=== PATIENT | male | born 1970 | race Caucasian/White ===

== ENCOUNTER 2018-09-24 16:40 | Emergency (ER) | payer SELFPAY ==
[2018-09-24 18:31] LABS: ABS Basophils 0.1 10^3/ul (0-0.2); ABS Eosinophils 0.6 10^3/ul (0-0.6); ABS Lymphocytes 2.2 10^3/ul (1.0-4.8); ABS Monocytes 0.9 10^3/ul (0-0.8); ABS Neutrophils 6.8 10^3/ul (1.5-7.7); ABS Nucleated RBC 0 10^3/ul; Eosinophil % 5.3 %; Hematocrit 40 % (42-52); Hemoglobin 13.5 g/dl (14.0-18.0); Lymphocyte % 21.1 %; Mean Corpuscular HGB Conc 34 g/dl (31-36); Mean Corpuscular Hemoglobin 29 pg (27-31); Mean Corpuscular Volume 86 fL (80-94); Mean Platelet Volume 8.3 fL (7.4-10.4); Nucleated Red Blood Cells % 0; Platelet Count 265 10^3/ul (150-450); Red Blood Count 4.69 10^6/ul (4.00-5.40); Red Cell Distribution Width 13 % (10.5-15); White Blood Count 10.6 10^3/ul (3.5-10.8)
[2018-09-24 18:54] LABS: EGFR Non-African American 39.1 (>60)
--- NOTE | 2018-09-24 19:03 | ED ---
HPI Chest Pain - HPI Summary HPI Summary: 48 year old male presents with right sided rib pain for the past couple days. He dropped a tailgate on his right ribs. He admits to pain with deep inspiration. He denies any bowel pain. No nausea or vomiting. He states he has been also been having a cough. No fevers. He is a smoker. He denies any pain or swelling in his calf muscle. No family history of blood clots. No recent travel. - History of Current Complaint Chief Complaint: EDChestWallPain Time Seen by Provider: 09/24/18 17:37 Pain Intensity: 15 - Allergy/Home Medications Allergies/Adverse Reactions: Allergies Allergy/AdvReac Type Severity Reaction Status Date / Time No Known Allergies Allergy Verified 09/24/18 16:47 PMH/Surg Hx/FS Hx/Imm Hx Endocrine/Hematology History: Denies: Hx Anticoagulant Therapy Respiratory History: Denies: Hx Asthma Infectious Disease History: No Infectious Disease History: Denies: Traveled Outside the [place] in Last 30 Days - Family History Known Family History: Positive: Non-Contributory - Social History Substance Use Type: Reports: None Smoking Status (MU): Current Every Day Smoker Review of Systems Negative: Fever Positive: Chest Pain Positive: Shortness Of Breath, Cough Negative: Abdominal Pain All Other Systems Reviewed And Are Negative: Yes Physical Exam Triage Information Reviewed: Yes Vital Signs On Initial Exam: Initial Vitals Temp Pulse Resp BP Pulse Ox 97.5 F 80 16 169/80 99 09/24/18 16:41 09/24/18 16:41 09/24/18 16:41 09/24/18 16:41 09/24/18 16:41 Vital Signs Reviewed: Yes Appearance: Positive: Well-Appearing Skin: Positive: Warm, Dry Head/Face: Positive: Normal Head/Face Inspection Eyes: Positive: Normal, EOMI, SHAY, Conjunctiva Clear ENT: Positive: Normal ENT inspection, Pharynx normal, TMs normal Respiratory/Lung Sounds: Positive: Clear to Auscultation, Breath Sounds Present , Other - tenderness over right lower ribs Cardiovascular: Positive: Normal, RRR Musculoskeletal: Positive: Normal Neurological: Positive: Normal Psychiatric: Positive: Normal Diagnostics - Vital Signs Vital Signs Temp Pulse Resp BP Pulse Ox 09/24/18 16:41 97.5 F 80 16 169/80 99 - Laboratory Lab Results: Lab Results 09/24/18 09/24/18 Range/Units 18:20 18:22 WBC 10.6 (3.5-10.8) 10^3/ul RBC 4.69 (4.00-5.40) 10^6/ul Hgb 13.5 L (14.0-18.0) g/dl Hct 40 L (42-52) % MCV 86 (80-94) fL MCH 29 (27-31) pg MCHC 34 (31-36) g/dl RDW 13 (10.5-15) % Plt Count 265 (150-450) 10^3/ul MPV 8.3 (7.4-10.4) fL Neut % (Auto) 64.3 % Lymph % (Auto) 21.1 % [place] % (Auto) 8.4 % Eos % (Auto) 5.3 % Baso % (Auto) 0.9 % Absolute Neuts (auto) 6.8 (1.5-7.7) 10^3/ul Absolute Lymphs (auto) 2.2 (1.0-4.8) 10^3/ul Absolute Monos (auto) 0.9 H (0-0.8) 10^3/ul Absolute Eos (auto) 0.6 (0-0.6) 10^3/ul Absolute Basos (auto) 0.1 (0-0.2) 10^3/ul Absolute Nucleated RBC 0 10^3/ul Nucleated RBC % 0 Sodium 137 (135-145) mmol/L Potassium 4.4 (3.5-5.0) mmol/L Chloride 102 (101-111) mmol/L Carbon Dioxide 29 (22-32) mmol/L Anion Gap 6 (2-11) mmol/L BUN 44 H (6-24) mg/dL Creatinine 1.87 H (0.67-1.17) mg/dL Est GFR ( Amer) 47.3 (>60) Est GFR (Non-Af Amer) 39.1 (>60) BUN/Creatinine Ratio 23.5 H (8-20) Glucose 289 H (70-100) mg/dL Calcium 9.2 (8.6-10.3) mg/dL Total Bilirubin 0.30 (0.2-1.0) mg/dL AST 16 (13-39) U/L ALT 23 (7-52) U/L Alkaline Phosphatase 91 (34-104) U/L Troponin I 0.00 (<0.04) ng/mL Total Protein 6.9 (6.4-8.9) g/dL Albumin 4.0 (3.2-5.2) g/dL Globulin 2.9 (2-4) g/dL Albumin/Globulin Ratio 1.4 (1-3) Result Diagrams: 09/24/18 18:22 09/24/18 18:20 Lab Statement: Any lab studies that have been ordered have been reviewed, and results considered in the medical decision making process. - Radiology rib Radiology Interpretation Completed By: ED Physician Summary of Radiographic Findings: no fracture - EKG No standard instances Cardiac Rate: NL EKG Rhythm: Sinus Rhythm Summary of EKG Findings: sinus rhythm Chest Pain Course/Dx - Course Course Of Treatment: 48 year old male presents with right sided rib pain for the past couple days. He dropped a tailgate on his right ribs. He admits to pain with deep inspiration. He denies any bowel pain. No nausea or vomiting. He states he has been also been having a cough. No fevers. He is a smoker. He denies any pain or swelling in his calf muscle. No family history of blood clots. No recent travel. On exam has tenderness over the right ribs. Lungs clear to auscultation.. X-ray of ribs read by me and Dr. Lantigua as normal. EKG normal sinus rhythm. Troponin zero. gave tessalon for cough. Ibuprofen for the pain. Patient understands agrees with plan. - Chest Pain Differential Diagnosis/HQI/PQRI: Chest Wall, Lower Respiratory Infection, Other : - fracture, contusion - Diagnoses Provider Diagnoses: Rib contusion Discharge - Sign-Out/Discharge Documenting (check all that apply): Patient Departure - Discharge Plan Condition: Good Disposition: HOME Prescriptions: Benzonatate CAP* [Tessalon 100 MG CAP*] 100 mg PO TID #21 cap Ibuprofen TAB* [Motrin TAB* 600 MG] 600 mg PO Q6H PRN #20 tab PRN Reason: Pain Patient Education Materials: Rib Contusion (ED) Referrals: [facility] [place] [place] [facility] [Outside] Additional Instructions: Take deep breath throughout the day Take Ibuprofen or Tylenol for pain every 6 hours take tessalon three times a day for cough establish care with primary Return to ED if develop fever, or any new or worsening symptoms - Billing Disposition and Condition Condition: GOOD Disposition: Home
[2018-09-24] MEDS ORDERED: Ibuprofen TAB* 600 MG PO ONE (19:19)
[2018-09-24] MEDS ORDERED: Benzonatate CAP* 100 MG PO ONE (19:19)
[2018-09-24 19:32] VITALS: BP 139/78
== END 2018-09-24 19:31 | disposition home or self-care (01) ==
LOC: ED 16:40
DX: S20.211A Contusion of right front wall of thorax, initial encounter (principal); F17.200 Nicotine dependence, unspecified, uncomplicated; W20.8XXA Other cause of strike by thrown, projected or falling object, initial encounter; Y92.9 Unspecified place or not applicable
CPT/HCPCS: 36415; 80053; 84484; 85025; 93005; 99281; A9270-GY

== ENCOUNTER 2019-02-11 22:56 | Emergency (ER) | payer OTHER ==
--- NOTE | 2019-02-12 02:18 | ED ---
Skin Complaint - HPI Summary HPI Summary: Pt is a 48 y/o male who presents to the ED c/o boils. 4 days ago he began to have boils on his legs, abdomen, and head. Pt states the boil on his head is causing a migraine, rated a 10/10 in severity. He is able to get some puss out of the boils and states they are pruritic. He denies any fever or N/V. Pt notes hes had spider bites in the past. - History of Current Complaint Chief Complaint: EDRashSkinAbscess Time Seen by Provider: 02/12/19 02:15 Stated Complaint: LUMPS ALL OVER BODY PER PT Hx Obtained From: Patient Onset/Duration: Started Days Ago - 4, Still Present Timing: Constant Current Severity: Severe Pain Intensity: 10 Pain Scale Used: 0-10 Numeric Character: Pruritus, Pain - Allergy/Home Medications Allergies/Adverse Reactions: Allergies Allergy/AdvReac Type Severity Reaction Status Date / Time No Known Allergies Allergy Verified 09/24/18 16:47 PMH/Surg Hx/FS Hx/Imm Hx Endocrine/Hematology History: Reports: Hx Diabetes Denies: Hx Anticoagulant Therapy Cardiovascular History: Reports: Hx Hypertension Respiratory History: Denies: Hx Asthma Infectious Disease History: No Infectious Disease History: Denies: Traveled Outside the [place] in Last 30 Days - Family History Known Family History: Negative: Blood Disorder - clots - Social History Alcohol Use: NA Hx Substance Use: No Substance Use Type: Reports: None Hx Tobacco Use: Yes Smoking Status (MU): Current Every Day Smoker Review of Systems Negative: Fever Negative: Vomiting, Nausea Positive: Other - boils on legs, abdomen, head Positive: Headache - migraine All Other Systems Reviewed And Are Negative: Yes Physical Exam - Summary Physical Exam Summary: Appearance: well appearing, no pain distress Skin: warm, dry, reflects adequate perfusion, 1 cm nodule with surrounding erythema and tenderness with a crusted scab in the center on the right flank and occiput Head/face: normal Eyes: EOMI, SHAY ENT: mucous membranes moist Neck: supple, non-tender Respiratory: CTA, breath sounds present Cardiovascular: RRR, pulses symmetrical Abdomen: non-tender, soft Bowel Sounds: present Musculoskeletal: normal, strength/ROM intact Neuro: normal, sensory motor intact, A&Ox3 Triage Information Reviewed: Yes Vital Signs On Initial Exam: Initial Vitals Temp Pulse Resp BP Pulse Ox 97.7 F 76 18 141/89 97 02/11/19 23:11 02/11/19 23:11 02/11/19 23:11 02/11/19 23:11 02/11/19 23:11 Vital Signs Reviewed: Yes Procedures - Incision and Drainage Right Back Site: Right flank Anesthesia: Local, Lidocaine - 3 cc 1% Instrument(s): Scalpel Packing: Other - No packing, culture obtained Midline Head Site: Occiput Anesthesia: Local, Lidocaine - 2 cc 1% Instrument(s): Scalpel Packing: Other - No packing Diagnostics - Vital Signs Vital Signs Temp Pulse Resp BP Pulse Ox 02/11/19 23:11 97.7 F 76 18 141/89 97 - Laboratory Lab Statement: Any lab studies that have been ordered have been reviewed, and results considered in the medical decision making process. Course/Dx - Course Course Of Treatment: Patient with 2 distinct abscesses, one in his apical scalp and the other and his right lateral chest wall. These were separately incised and drained and he was placed on antibiotics. Dressings were applied. He will continue antibiotics outpatient. The patient was seen in conjunction with the physician advertising sales assistant student. The above history, physical exam, medical decision -making and procedure represent my work. - Diagnoses Provider Diagnoses: Back abscess, Scalp abscess Discharge - Sign-Out/Discharge Documenting (check all that apply): Patient Departure - Discharge Patient Received Moderate/Deep Sedation with Procedure: No - Discharge Plan Condition: Improved Disposition: HOME Prescriptions: Sulfamethox/Trimethoprim DS* [Bactrim DS 800/160 TAB*] 2 tab PO BID #20 tab Patient Education Materials: Abscess (ED) Referrals: Jose Guadalupe FERRELL,Derek Paniagua [Primary Care Provider] - Additional Instructions: Clean entire body with provided antibacterial soap. Return with fever, worsening, new symptoms or other concerns. Call the morning for an appointment with your doctor for wound recheck in 3-4 days. - Billing Disposition and Condition Condition: IMPROVED Disposition: Home - Attestation Statements Document Initiated by Scribe: Yes Documenting Scribe: Arlin Koehler Provider For Whom Scribe is Documenting (Include Credential): Julio Amado MD Scribe Attestation: Arlin Zelaya, scribed for Julio Amado MD on 02/12/19 at 0650. Scribe Documentation Reviewed: Yes Provider Attestation: The documentation as recorded by the scribe, Arlin Koehler accurately reflects the service I personally performed and the decisions made by me, Julio Amado MD Status of Scribe Document: Viewed
[2019-02-12] MEDS ORDERED: Sulfamethox/Trimethoprim DS 800/160* TAB PO ONE (02:32)
[2019-02-12] MEDS ORDERED: HYDROcodone/ACETAMIN 5-325 MG* 1 TAB PO ONE (03:26)
[2019-02-12 04:15] VITALS: BP 134/76
--- NOTE | 2019-02-13 06:07 | PN ---
Progress Note - Progress Note Date of Service: 02/12/19 Note: Urine culture final grew MRSA positive and staph aureus positive Patient was placed on Bactrim prior to discharge This will cover organism Nothing further this time
== END 2019-02-12 04:14 | disposition home or self-care (01) ==
LOC: ED 22:56
DX: L02.212 Cutaneous abscess of back [any part, except buttock and flank] (principal); L02.811 Cutaneous abscess of head [any part, except face]; I10 Essential (primary) hypertension; E11.9 Type 2 diabetes mellitus without complications; F17.210 Nicotine dependence, cigarettes, uncomplicated
CPT/HCPCS: 10060; 87070; 87077; 87186; 87205; 87640; 87641; 99282; A9270-GY

== ENCOUNTER 2019-04-19 21:52 | Emergency (ER) | payer OTHER ==
[2019-04-20] MEDS ORDERED: Albuterol/Ipratropium NEB.SOL* Albuterol 2.5 MG/Ipratropium 0.5 MG 3 ML INH ONE (00:32)
[2019-04-20] MEDS ORDERED: guaiFENesin/CODIEN 100MG-10MG* 5 ML UDC PO ONE (00:32)
[2019-04-20 00:57] LABS: ABS Basophils 0.1 10^3/ul (0-0.2); ABS Eosinophils 0.7 10^3/ul (0-0.6); ABS Monocytes 0.8 10^3/ul (0-0.8); ABS Neutrophils 4.7 10^3/ul (1.5-7.7); Hematocrit 39 % (42-52); Hemoglobin 13.5 g/dL (14.0-18.0); Lymphocyte % 31.9 %; Mean Corpuscular HGB Conc 34 g/dL (31-36); Mean Corpuscular Hemoglobin 29 pg (27-31); Mean Corpuscular Volume 85 fL (80-94); Mean Platelet Volume 8.6 fL (7.4-10.4); Nucleated Red Blood Cells % 0.1; Platelet Count 247 10^3/uL (150-450); Red Blood Count 4.65 10^6 /uL (4.18-5.48); Red Cell Distribution Width 13 % (10-15); White Blood Count 9.3 10^3/uL (3.5-10.8)
[2019-04-20 01:14] LABS: Albumin 4.1 g/dL (3.2-5.2); Albumin/Globulin Ratio 1.4 (1-3); Calcium 9.3 mg/dL (8.6-10.3); EGFR Non-African American 29.7 (>60); Total Bilirubin 0.3 mg/dL (0.2-1.0); Total Protein 7.1 g/dL (6.4-8.9)
[2019-04-20 01:45] LABS: Potassium 4.2 mmol/L (3.5-5.0)
[2019-04-20] MEDS ORDERED: A lbuterol Hfa (PREPAK) 1 MDI - ED TAKE HOME DISPENSING ONLY INHH ONE (01:51)
[2019-04-20] MEDS ORDERED: Amoxicillin/Clavulanate TAB* 875 MG PO ONE (01:51)
--- NOTE | 2019-04-20 01:51 | ED ---
Respiratory - HPI Summary HPI Summary: 48-year-old male presents with cough for the past 6 months. over the past week cough has got worse. admits to a sore throat and sinus congestion. He states having worsening sinus congestion and pressure. He admits to postnasal drip. He denies any nausea vomiting. No abd pain. He states he has had some chest tightness with cough. No chest pain. No pain or swelling in his calf muscles. No increased weight. He has a long smoking history. Has not seen his primary about this. - History of Current Complaint Chief Complaint: EDUpperRespComplaint Stated Complaint: COUGH/SORE THROAT PER PT Time Seen by Provider: 04/20/19 00:27 Pain Intensity: 5 Sputum Amount: None - Allergy/Home Medications Allergies/Adverse Reactions: Allergies Allergy/AdvReac Type Severity Reaction Status Date / Time No Known Allergies Allergy Verified 04/20/19 00:43 Home Medications: Home Medications Insulin Lispro [Admelog] 1.2 units SUBCUT 04/20/19 [History] PMH/Surg Hx/FS Hx/Imm Hx Endocrine/Hematology History: Reports: Hx Diabetes Denies: Hx Anticoagulant Therapy Cardiovascular History: Reports: Hx Hypertension Respiratory History: Reports: Hx Asthma Infectious Disease History: No Infectious Disease History: Denies: Traveled Outside the [place] in Last 30 Days - Family History Known Family History: Negative: Blood Disorder - clots - Social History Alcohol Use: None Hx Substance Use: No Substance Use Type: Reports: None Hx Tobacco Use: Yes Smoking Status (MU): Current Every Day Smoker Review of Systems Negative: Fever Positive: Sore Throat, Nasal Discharge Negative: Chest Pain Positive: Shortness Of Breath, Cough Negative: Abdominal Pain All Other Systems Reviewed And Are Negative: Yes Physical Exam Triage Information Reviewed: Yes Vital Signs On Initial Exam: Initial Vitals Temp Pulse Resp BP Pulse Ox 98 F 76 18 149/87 98 04/19/19 21:55 04/19/19 21:55 04/19/19 21:55 04/19/19 21:55 04/19/19 21:55 Vital Signs Reviewed: Yes Appearance: Positive: Well-Appearing Skin: Positive: Warm, Dry Head/Face: Positive: Normal Head/Face Inspection Eyes: Positive: Normal, EOMI, SHAY, Conjunctiva Clear ENT: Positive: Normal ENT inspection, Pharynx normal, TMs normal, Sinus tenderness Neck: Positive: Supple, Nontender, No Lymphadenopathy Respiratory/Lung Sounds: Positive: Decreased Breath Sounds, Wheezes Cardiovascular: Positive: Normal, RRR Abdomen Description: Positive: Nontender, Soft Bowel Sounds: Positive: Present Musculoskeletal: Positive: Normal Neurological: Positive: Normal Psychiatric: Positive: Normal Diagnostics - Vital Signs Vital Signs Temp Pulse Resp BP Pulse Ox 04/20/19 00:56 68 16 96 04/19/19 21:55 98 F 76 18 149/87 98 - Laboratory Lab Results: Lab Results 04/20/19 04/20/19 04/20/19 Range/Units 00:51 00:51 00:51 WBC 9.3 (3.5-10.8) 10^3/uL RBC 4.65 (4.18-5.48) 10^6 /uL Hgb 13.5 L (14.0-18.0) g/dL Hct 39 L (42-52) % MCV 85 (80-94) fL MCH 29 (27-31) pg MCHC 34 (31-36) g/dL RDW 13 (10-15) % Plt Count 247 (150-450) 10^3/uL MPV 8.6 (7.4-10.4) fL Neut % (Auto) 50.2 % Lymph % (Auto) 31.9 % [place] % (Auto) 9.0 % Eos % (Auto) 8.0 % Baso % (Auto) 0.9 % Absolute Neuts (auto) 4.7 (1.5-7.7) 10^3/ul Absolute Lymphs (auto) 3.0 (1.0-4.8) 10^3/ul Absolute Monos (auto) 0.8 (0-0.8) 10^3/ul Absolute Eos (auto) 0.7 H (0-0.6) 10^3/ul Absolute Basos (auto) 0.1 (0-0.2) 10^3/ul Absolute Nucleated RBC 0.0 10^3/ul Nucleated RBC % 0.1 Sodium 138 (135-145) mmol/L Potassium 4.2 (3.5-5.0) mmol/L Chloride 103 (101-111) mmol/L Carbon Dioxide 26 (22-32) mmol/L Anion Gap 9 (2-11) mmol/L BUN 45 H (6-24) mg/dL Creatinine 2.37 H (0.67-1.17) mg/dL Est GFR ( Amer) 36.0 (>60) Est GFR (Non-Af Amer) 29.7 (>60) BUN/Creatinine Ratio 19.0 (8-20) Glucose 206 H (70-100) mg/dL Lactic Acid 0.7 (0.5-2.0) mmol/L Calcium 9.3 (8.6-10.3) mg/dL Total Bilirubin 0.30 (0.2-1.0) mg/dL AST 23 (13-39) U/L ALT 25 (7-52) U/L Alkaline Phosphatase 107 H (34-104) U/L Troponin I 0.00 (<0.04) ng/mL B-Natriuretic Peptide (<=100) pg/mL Total Protein 7.1 (6.4-8.9) g/dL Albumin 4.1 (3.2-5.2) g/dL Globulin 3.0 (2-4) g/dL Albumin/Globulin Ratio 1.4 (1-3) /06/01 Range/Units 00:51 WBC (3.5-10.8) 10^3/uL RBC (4.18-5.48) 10^6 /uL Hgb (14.0-18.0) g/dL Hct (42-52) % MCV (80-94) fL MCH (27-31) pg MCHC (31-36) g/dL RDW (10-15) % Plt Count (150-450) 10^3/uL MPV (7.4-10.4) fL Neut % (Auto) % Lymph % (Auto) % [place] % (Auto) % Eos % (Auto) % Baso % (Auto) % Absolute Neuts (auto) (1.5-7.7) 10^3/ul Absolute Lymphs (auto) (1.0-4.8) 10^3/ul Absolute Monos (auto) (0-0.8) 10^3/ul Absolute Eos (auto) (0-0.6) 10^3/ul Absolute Basos (auto) (0-0.2) 10^3/ul Absolute Nucleated RBC 10^3/ul Nucleated RBC % Sodium (135-145) mmol/L Potassium (3.5-5.0) mmol/L Chloride (101-111) mmol/L Carbon Dioxide (22-32) mmol/L Anion Gap (2-11) mmol/L BUN (6-24) mg/dL Creatinine (0.67-1.17) mg/dL Est GFR ( Amer) (>60) Est GFR (Non-Af Amer) (>60) BUN/Creatinine Ratio (8-20) Glucose (70-100) mg/dL Lactic Acid (0.5-2.0) mmol/L Calcium (8.6-10.3) mg/dL Total Bilirubin (0.2-1.0) mg/dL AST (13-39) U/L ALT (7-52) U/L Alkaline Phosphatase (34-104) U/L Troponin I (<0.04) ng/mL B-Natriuretic Peptide 26 (<=100) pg/mL Total Protein (6.4-8.9) g/dL Albumin (3.2-5.2) g/dL Globulin (2-4) g/dL Albumin/Globulin Ratio (1-3) Result Diagrams: 04/20/19 00:51 04/20/19 00:51 Lab Statement: Any lab studies that have been ordered have been reviewed, and results considered in the medical decision making process. - Radiology chest Radiology Interpretation Completed By: ED Physician Summary of Radiographic Findings: no pneumonia - EKG No standard instances Cardiac Rate: NL EKG Rhythm: Sinus Rhythm Summary of EKG Findings: sinus rhythm Re-Evaluation - Re-Evaluation First Eval Re-Evaluation Time: 02:13 Change: Improved Comment: feeling better after inhaler Disposition - Course Course Of Treatment: 48-year-old male presents with cough for the past 6 months. over the past week cough has got worse. admits to a sore throat and sinus congestion. He states having worsening sinus congestion and pressure. He admits to postnasal drip. He denies any nausea vomiting. No abd pain. He states he has had some chest tightness with cough. No chest pain. No pain or swelling in his calf muscles. No increased weight. He has a long smoking history. Has not seen his primary about this. On exam decreased breath sounds and wheezing noted. wbc normal. EKG shows sinus rhythm. gave breathing treatment is feeling better. Chest x-ray read by me as no pneumonia. We'll place on a course of Augmentin due to sinus tenderness likely has a sinusitis. We'll give Flonase for nasal congestion. Will prescribe inhaler and robitussin with codeine for cough. Did not give oral steroids as has history of diabetes. told follow up with primary as needs additional testing for copd likely. Patient understands agrees with plan. - Differential Dx - Cardiopulmonary Differential Diagnoses - Cardiopulmonary: Bronchitis, Lower Resp Infection, Sinusitis - Diagnoses Provider Diagnoses: Bronchitis, Sinusitis Discharge - Sign-Out/Discharge Documenting (check all that apply): Patient Departure Patient Received Moderate/Deep Sedation with Procedure: No - Discharge Plan Condition: Good Disposition: HOME Prescriptions: Amoxicillin/Clavulanate TAB* [Augmentin TAB 875*] 875 mg PO BID #19 tab Fluticasone NASAL SPRAY 50MCG* [Flonase NASAL SPRAY 50MCG*] 2 spray BOTH NARES DAILY #1 btl guaiFENesin/CODIEN 100MG-10MG* [Robitussin AC 100Mg-10Mg*] 5 ml PO Q6H PRN #100 ml MDD 20ml PRN Reason: Cough Patient Education Materials: Acute Bronchitis (ED) Referrals: Jose Guadalupe FERRELL,Derek Paniagua [Primary Care Provider] - Additional Instructions: Take cough medication 5ml (1 teaspoon) every 6 hours as needed cough take augmentin twice a day for 10 days Use intranasal steroid two spray each nostril daily Use inhaler up to two puffs every 4-6 hours for cough Use saline in the nose for nasal congestion, Take Tylenol for pain every 6 hours Follow up with primary Return to ED if develop any new or worsening symptoms - Billing Disposition and Condition Condition: GOOD Disposition: Home
[2019-04-20 02:00] VITALS: BP 163/83
== END 2019-04-20 02:10 | disposition home or self-care (01) ==
LOC: ED 21:52
DX: J40 Bronchitis, not specified as acute or chronic (principal); J32.9 Chronic sinusitis, unspecified; R05 Cough; I10 Essential (primary) hypertension; F17.210 Nicotine dependence, cigarettes, uncomplicated; E11.9 Type 2 diabetes mellitus without complications; J45.909 Unspecified asthma, uncomplicated
CPT/HCPCS: 36415; 71046; 80053; 83605; 83880; 84484; 85025; 93005; 99283; A9270-GY

== ENCOUNTER 2019-08-13 15:25 | Observation (INO) | payer SELFPAY ==
--- OUTSIDE RECORDS SUMMARY | 2019-08-13 15:42 | XMS REPORT | Summary of Care ---
:1970 Author Organization [facility] Address [address] [place] [address] Care Team Providers Name Role Phone Derek Shi MD Primary Care Provider Reason for Visit Reason Comments Wound Encounter Details Date Type Department Care Team Description 06/16/2019 Emergency [facility] Emergency Department Emergency [address] [place] [address] Allergies No Known Allergiesdocumented as of this encounter (statuses as of 06/17/2019) Medications Medication Sig Dispensed Refills Start Date End Date Status sulfamethoxazole-trimet Take 1 Tab by 14 Tab 0 06/16/2019 Active hoprim (BACTRIM DS) mouth TWICE 800-160 MG Oral Tab DAILY. documented as of this encounter (statuses as of 06/17/2019) Active Problems Not on filedocumented as of this encounter (statuses as of 06/17/2019) Social History Tobacco Use Types Packs/Day Years Used Date Current Every Day Smoker 0.5 Smokeless Tobacco: Never Used Sex Assigned at Date Recorded Not on file Job Start Date Occupation Industry Not on file Not on file Not on file Travel History Travel Start Travel End No recent travel history available. documented as of this encounter Last Filed Vital Signs Vital Sign Reading Time Taken Comments Blood Pressure 168/81 06/16/2019 10:20 AM EDT Pulse 76 06/16/2019 10:20 AM EDT Temperature 36.5 06/16/2019 10:20 AM EDT C (97.7 F) Respiratory Rate 15 06/16/2019 10:20 AM EDT Oxygen Saturation 98% 06/16/2019 10:20 AM EDT Inhaled Oxygen Concentration - - Weight 99.8 kg (220 lb) 06/16/2019 10:20 AM EDT Height 172.7 cm (5' 8") 06/16/2019 10:20 AM EDT Body Mass Index 33.45 06/16/2019 10:20 AM EDT documented in this encounter Discharge Instructions AttachmentsThe following attachments cannot be sent through Care Everywhere.ABSCESS (AFTERCARE(R) INSTRUCTIONS(ER/ED)) (MALDIVIAN)documented in this encounter Plan of Treatment Health Maintenance Due Date Last Done Comments PNEUMOCOCCAL 0-64 YRS (1 of - 1978 PPSV23) DEPRESSION SCREENING 1984 HIV SCREENING 1987 INFLUENZA VACCINE (#1) 2019 HPV IMMUNIZATION SERIES Aged Out No longer eligible based on patient's age to complete this topic MENINGOCOCCAL VACCINE IMM Aged Out No longer eligible based on patient's age to complete this topic documented as of this encounter Results Not on filedocumented in this encounter Visit Diagnoses Diagnosis Abscess - Primary Cellulitis and abscess of unspecified site documented in this encounter Administered Medications Medication Order MAR Action Action Date Dose Rate Site sulfamethoxazole-trimethoprim Given 06/16/2019 10:46 AM EDT 1 Tab (BACTRIM DS, SEPTRA DS) 800-160 mg double strength 1 Tab 1 Tab, Oral, NOW, 1 dose, 06/16/19 at 1045 documented in this encounter Insurance Payer Benefit Plan / Subscriber ID Effective Dates Phone Address Type Group [facility]AR[facility]US [facility]ILL[facility] xxxxxxxxxxx 2017-Present Darius documented as of this encounter
--- NOTE | 2019-08-13 15:43 | ED ---
Neurological HPI - HPI Summary HPI Summary: This pt is a 49 y/o male [facility]/o left sided facial droop and slurred speech today. Pt reports he went to bed completely normal at 00:00 today. Last well known 08/13/19 at 00:00. He notes he woke up at 10:00 today and his girlfriend noticed he had left sided facial droop and slurred speech. Pt additionally c/o left arm numbness that goes from his left upper arm down his elbow. He denies headache. Dr. Morton immediately at bedside. Pt admits to tobacco use. PMHx: HTN, type 1 DM, hyperlipidemia. Denies FHx of seizure or strokes. - History of Current Complaint Chief Complaint: EDNeurologicalDeficit Stated Complaint: LT SIDE NUMBNESS/TINGLING IN LT ARM PER PT Time Seen by Provider: 08/13/19 15:34 Hx Obtained From: Patient Onset/Duration: Started hours ago, Still Present Timing: Sudden Onset Current Severity: Moderate Neurological Deficit Location: Facial, LUE Pain Intensity: 6 Character: Numbness/Tingling - left arm numbness, Other: - left facial droop, slurred speech Aggravating: Nothing Alleviating: Nothing Associated Signs and Symptoms: Positive: Numbness. Negative: Headache, Fever - Allergy/Home Medications Allergies/Adverse Reactions: Allergies Allergy/AdvReac Type Severity Reaction Status Date / Time No Known Allergies Allergy Verified 04/20/19 00:43 Home Medications: Home Medications Insulin Lispro [Admelog] 0 - 100 unit SQ DAILY 08/13/19 [History Confirmed 08/13] PMH/Surg Hx/FS Hx/Imm Hx Endocrine/Hematology History: Reports: Hx Diabetes Denies: Hx Anticoagulant Therapy Cardiovascular History: Reports: Hx Hypercholesterolemia, Hx Hypertension Respiratory History: Reports: Hx Asthma Neurological History: Denies: Hx CVA Infectious Disease History: No Infectious Disease History: Denies: Traveled Outside the [place] in Last 30 Days - Family History Known Family History: Negative: Blood Disorder - clots Family History: No FHx of seizures or strokes - Social History Alcohol Use: None Hx Substance Use: No Substance Use Type: Reports: None Hx Tobacco Use: Yes Smoking Status (MU): Current Every Day Smoker Review of Systems Negative: Fever, Chills Neurological: Other - POSITIVE: slurred speech, left sided facial droop Positive: Numbness. Negative: Headache All Other Systems Reviewed And Are Negative: Yes Physical Exam - Summary Physical Exam Summary: Constitutional: Well-developed, Well-nourished, Alert. (-) Distressed Skin: Warm, Dry HENT: Normocephalic; Atraumatic Eyes: Conjunctiva normal Neck: Musculoskeletal ROM normal neck. (-) JVD, (-) Nuchal rigidity Cardio: Rhythm regular, rate normal, Heart sounds normal; Intact distal pulses; Radial pulses are 2+ and symmetric. (-) Murmur Pulmonary/Chest wall: Effort normal. (-) Respiratory distress, (-) Wheezes, (-) Rales Abd: Soft. (-) Tenderness, (-) Distension, (-) Guarding, (-) Rebound Musculoskeletal: (-) Edema Lymph: (-) Cervical adenopathy Neuro: Alert, PERRL, Oriented x3, Strength normal, SILT, Strength 5/5 BUE and BLE, Left sided facial droop, Dysarthria Psych: Mood and affect Normal Triage Information Reviewed: Yes Vital Signs On Initial Exam: Initial Vitals Temp Pulse Resp BP Pulse Ox 97.3 F 96 18 138/85 95 08/13/19 15:26 08/13/19 15:26 08/13/19 15:26 08/13/19 15:26 08/13/19 15:26 Vital Signs Reviewed: Yes Procedures - Sedation Patient Received Moderate/Deep Sedation with Procedure: No Diagnostics - Vital Signs Vital Signs Temp Pulse Resp BP Pulse Ox 08/13/19 15:26 97.3 F 96 18 138/85 95 - Laboratory Result Diagrams: 08/13/19 15:50 08/13/19 15:50 Lab Statement: Any lab studies that have been ordered have been reviewed, and results considered in the medical decision making process. - CT Head CTA CT Interpretation Completed By: Radiologist - EKG 16:04 Cardiac Rate: NL - at 78 bpm EKG Rhythm: Sinus Rhythm Summary of EKG Findings: EKG at 16:04 shows sinus rhythm at a rate of 78 bpm. No ischemic changes. NIH Scale - NIH Scale Level of Consciousness: Alert/Keenly Responsive Ask Patient the Month and His/Her Age: Both Correct Ask Pt to Open/Close Eyes and Animal Assistant/Release Non-Paretic Hand: Both Correctly Best Gaze (Only Horizontal Eye Movement): Normal Visual Field Testing: No Visual Loss Facial Paresis-Pt to Smile & Close Eyes or Grimace Symmetry: Minor Paralysis Motor Function - Right Arm: No Drift-Holds 10 Seconds Motor Function - Left Arm: No Drift-Holds 10 Seconds Motor Function - Right Leg: No Drift-Holds 10 Seconds Motor Function - Left Leg: No Drift-Holds 10 Seconds Limb Ataxia-Must be out of Proportion to Weakness Present: Absent Sensory (Use Pinprick to Test Arms/Legs/Trunk/Face): Pinprick Less on Affected Best Language (Describe Picture, Name Items): No Aphasia Dysarthria (Read Several Words): Slurs Some Words Extinction and Inattention: No Abnormality Total Score: 3 Re-Evaluation - Re-Evaluation First Eval Re-Evaluation Time: 15:00 Comment: CT w/o obvious stroke on my read, awaiting official read. Cr 2 on labs Course/Dx - Course Course Of Treatment: 49-year-old male history of diabetes, hypertension, hyperlipidemia presents with left sided facial weakness and dysarthria. NH stroke scale of 3, patient is out of the window for TPA, therefore code schaffer not called. Less known well midnight last night. We'll check a CT, CTA and labs. Dr. Morton at bedside for initial evaluation. - Diagnoses Provider Diagnoses: Weakness on left side of face, Dysarthria - Physician Notifications Discussed Care Of Patient With: Daphne Peres - hospitalist Time Discussed With Above Provider: 17:00 Instructed by Provider To: Admit As Inpatient Discharge ED - Sign-Out/Discharge Documenting (check all that apply): Patient Departure - Admit to [facility] [place] - Discharge Plan Condition: Stable Disposition: ADMITTED TO [facility] Referrals: Jose Guadalupe FERRELL,Derek Paniagua [Primary Care Provider] - - Billing Disposition and Condition Condition: STABLE Disposition: Admitted to [facility] - Attestation Statements Document Initiated by Andrew: Yes Documenting Scribe: Hedy Damico Provider For Whom Andrew is Documenting (Include Credential): Erica Navarrete MD Scribe Attestation: Hedy Zelaya scribed for Erica Navarrete MD on 08/13/19 at 1745. Scribe Documentation Reviewed: Yes Provider Attestation: The documentation as recorded by the Hedy blue accurately reflects the service I personally performed and the decisions made by me, Erica Navarrete MD Status of Scribe Document: Viewed
[2019-08-13 15:59] LABS: ABS Basophils 0.1 10^3/ul (0-0.2); ABS Eosinophils 0.3 10^3/ul (0-0.6); ABS Lymphocytes 1.7 10^3/ul (1.0-4.8); ABS Monocytes 1.3 10^3/ul (0-0.8); ABS Neutrophils 9.7 10^3/ul (1.5-7.7); Eosinophil % 1.9 %; Hematocrit 39 % (42-52); Hemoglobin 12.8 g/dL (14.0-18.0); Lymphocyte % 13.3 %; Mean Corpuscular HGB Conc 33 g/dL (31-36); Mean Corpuscular Hemoglobin 28 pg (27-31); Mean Corpuscular Volume 86 fL (80-94); Mean Platelet Volume 8.1 fL (7.4-10.4); Nucleated Red Blood Cells % 0.1; Platelet Count 280 10^3/uL (150-450); Red Cell Distribution Width 13 % (10-15)
[2019-08-13 16:22] LABS: Albumin/Globulin Ratio 1.2 (1-3); BUN/Creatinine Ratio 18.8 (8-20); Calcium 9.6 mg/dL (8.6-10.3); EGFR African American 40.5 (>60); EGFR Non-African American 33.5 (>60); Globulin 3.4 g/dL (2-4); HDL Cholesterol 22.3 mg/dL; Potassium 4.4 mmol/L (3.5-5.0); Total Bilirubin 0.6 mg/dL (0.2-1.0); Total Protein 7.4 g/dL (6.4-8.9)
[2019-08-13] MEDS ORDERED: Iodixanol* (CONTRAST) 320 MG/ML 100 ML SDV IV ONE (16:43)
[2019-08-13 17:26] LABS: TSH (Thyroid Stimulating Horm) 0.82 mcIU/mL (0.34-5.60)
[2019-08-13] MEDS ORDERED: NS 0.9% 1000 ML** 1,000 ML IV ONE ×2 (18:02→19:02)
[2019-08-13] MEDS ORDERED: Albuterol/Ipratropium NEB.SOL* Albuterol 2.5 MG/Ipratropium 0.5 MG 3 ML INH PRN (18:48)
[2019-08-13] MEDS ORDERED: Docusate CAP* 100 MG PO PRN (18:48)
[2019-08-13] MEDS ORDERED: Dextrose 50% VIAL 50 ml IV PUSH PRN (18:59)
[2019-08-13] MEDS ORDERED: INSULIN LISPRO SQ SCH (19:00)
[2019-08-13] MEDS ORDERED: Aspirin EC TAB* 325 MG PO ONE (19:14)
[2019-08-13] MEDS ORDERED: Clopidogrel TAB* 75 MG PO ONE (19:15)
[2019-08-13] MEDS ORDERED: Insulin LISPRO* FOR INSULIN PUMP SUBCUT SCH (20:00)
[2019-08-13] MEDS ORDERED: Aspirin TAB* 325 MG PO ONE (20:15)
--- NOTE | 2019-08-13 20:54 | CONS ---
NEUROLOGY CONSULTATION NOTE: DATE OF CONSULT: 08/13/19 CONSULTING PROVIDER: Dr. Navarrete. REASON FOR CONSULT: Stroke. CHIEF COMPLAINT: Left-sided facial droop. HISTORY OF PRESENT ILLNESS: Mr. Arthur Maynard is a 49-year-old with a history of type 1 diabetes, who has insulin pump, hypertension, dyslipidemia, he uses tobacco regularly, who stated that he woke up this morning at 10 a.m. and found to have left facial droop. Again, onset is 10 a.m. on 08/13/19. Last known well was 08/13/19 at 12 a.m. before he fell asleep. His girlfriend noticed that he was slurring his speech. He has a left facial droop. He has no history of stroke or seizures. He denied any weakness. He feels like he has some numbness sensation in left side of his arm. The patient checked his blood sugar and it was in the 350s. He denied any headaches, visual disturbance, swallowing difficulty, chest pain, shortness of breath, impairment in bowel or bladder function, or lower extremity symptoms. NIH stroke scale is 2. CT and CTA were not done as of yet. No code steel was called because the patient 's last known well was outside the window for TPA. He did not have a CTA stat given that the patient's NIH stroke scale is low. The patient had a WBC of 13, platelets 280. Sodium 136, chloride of 100, BUN of 40, creatinine of 2.13, BUN-creatinine ratio of 18.8. Cholesterol of 154, LDL of 74. The patient's blood glucose was 292. PAST MEDICAL HISTORY: As mentioned in the HPI. MEDICATIONS: Insulin lispro. ALLERGIES: No known drug allergies. SOCIAL HISTORY: Tobacco use. Denied any alcohol use. Lives with his girlfriend. FAMILY HISTORY: No family history of stroke or seizures. REVIEW OF SYSTEMS: A 14-point review of systems was obtained and otherwise negative except for what is mentioned in the HPI. PHYSICAL EXAMINATION: Vitals: Temperature of 97.3, pulse of 96, respiratory rate of 18, oxygen saturation of 95%, blood pressure of 138/85. General: Well - nourished, well-developed man, in no acute distress. He recently had a tattoo completed on the right upper extremity. Head is atraumatic/ normocephalic without any obvious abnormality. Neck is supple and symmetrical with no carotid bruit. Eyes: Conjunctivae/corneas were clear without any scarring. Cardiovascular: Regular rate and rhythm with normal S1, S2. Pulmonary: Clear to auscultation bilaterally. Extremities: Normal range of motion with no cyanosis. Skin: No skin lesions or lacerations. Diffuse tattoos. Psych: Affect is broad. Normal mood. Easy to establish rapport. Neurological Examination: Mental status: Awake and alert, oriented to person, place, time, and general circumstance. Speech and language including repetition , comprehension were assessed and found to be normal. Cranial Nerves: Pupils are equal, round, reactive to light and accommodation. Extraocular muscles are intact. There is normal sensation to the face bilaterally. He has a mild left facial droop with flattening of the nasolabial fold on the left side. Tongue is symmetric and midline with no atrophy or fasciculation. Hearing is intact bilaterally. Motor examination: 5/5 strength in the upper and lower extremities. He has got pseudo pronator drift on the left upper extremity. He has 4+ to elbow extensor on the left side. Otherwise, 5/5 strength in the upper and lower extremity with normal tone. Sensation is intact throughout. Reflexes 1+ throughout. Coordination: Normal [id number]-pf-dhca and and heel-to- lopez testing bilaterally. Gait: Normal stance, normal gait. No ataxia. IMPRESSION: Mr. Arthur Maynard is a 49-year-old man who has history of type 1 diabetes, dyslipidemia, hypertension, and tobacco abuse, who presented to [facility] with new onset left facial droop and slurred speech. The patient's NIH stroke scale is 2. Given the patient's risk factors and sudden onset neurological symptoms, albeit they are mild, we have to rule out any small lacunar stroke in the right subcortical area near the thalamic, lenticulostriate, or right pontine region. RECOMMENDATIONS: Please admit under the hospitalist service. Aspirin 325 mg x1 and Plavix 75 mg x1. Please obtain a CT head and CTA head and neck prior to the antiplatelet therapy. Please start the patient on atorvastatin 40 mg nightly. Obtain an MRI of the brain without contrast evaluate for stroke. Obtain 2D transthoracic echo with bubble study to evaluate for any other causes of stroke, although I suspect if he does have a stroke it would be a lacunar infarct. However, if the symptoms resolve within 24 hours, the diagnosis is most likely TIA. Other differential diagnosis include hyperglycemia induced focal neurological deficits. Neuro check every 4 hours. No need for PT/OT due to the patient's minimal symptoms. However, please consult COMMUNITY DEVELOPMENT DIRECTOR. Please perform a dysphagia screen prior to giving him any oral medications. Keep permissive hypertension. Stroke education will be completed following the results of the workup. DVT prophylaxis with PCDs. I will continue to follow. [id number]/[facility] #: [id number] SAY
[2019-08-13] MEDS ORDERED: Insulin LISPRO* 1 UNITS UNIT SUBCUT SCH (21:00)
--- NOTE | 2019-08-13 21:27 | HP ---
CC: Dr. Morton; Dr. Shi * ADMISSION HISTORY AND PHYSICAL: DATE OF ADMISSION: 08/13/19 PRIMARY CARE PROVIDER: Derek Shi MD in [place]. ATTENDING FOR THIS ADMISSION: Dr. Manan Jim. * (DICTATED BY EMIL NICOLE NP) NEUROLOGY: Dr. Morton. CHIEF COMPLAINT: Left-sided facial numbness, tingling and left arm paresthesias and slurred speech. HISTORY OF PRESENT ILLNESS: Mr. Maynard is a 49-year-old male patient with history of insulin dependent diabetes mellitus who presented to the emergency department today with complaints of some slurred speech earlier in the day, also facial tingling on the left side, also reports of tingling in the left side of the tongue, weakness in the left hand and also some paresthesias from the elbow down to the left finger tips. The patient states he awoke in the morning with these symptoms, but did not seek medical attention immediately. Explained to me that his girlfriend also noted that his speech sounded slurred. The patient decided to go to work as opposed to coming to be evaluated. He states that at work he noticed the symptoms getting worse and the tingling and paresthesias were more persistent and pronounced. He eventually came to the emergency department to be evaluated. He was seen by Dr. Morton from Neurology, who recommended CT and CTA. It should be noted that the CTA did not show a large vessel occlusion and the symptom seem to be waxing and waning. I did discuss CAT scan findings. It does seem that the patient is likely having a right-sided lacunar stroke. We had been requested to admit the patient for observation for continued management. The patient was also complaining about a cough for 2 days, unproductive in nature, but did not report any sick contacts and did not report any fever or chills that were presenting with his other symptoms. PAST MEDICAL HISTORY: Significant for insulin dependent diabetes mellitus, hypertension, and hyperlipidemia. HOME MEDICATIONS: The patient states that he is supposed to be taking both a blood pressure medication and something for hyperlipidemia, but he has been noncompliant for several months. He does use an insulin pump, which is lispro, Admelog. ALLERGIES: He has no known drug allergies. FAMILY HISTORY: The patient states he is not aware of his family history, but does not think anyone has had strokes or cardiac disease on either side. SOCIAL HISTORY: He is a current every day smoker. Denies any alcohol use, denies any illicit drug use. His healthcare proxy is his girlfriend. Her name is Giulia Ramos, phone number is [phone]. REVIEW OF SYSTEMS: A 10-point review of systems is negative except as otherwise noted in the HPI above. PHYSICAL EXAMINATION GENERAL: The patient is awake and well appearing in no acute distress. VITAL SIGNS: Blood pressure 139/95, heart rate 85, respiratory rate 26, O2 saturation 95% on room air with a temperature of 97.3. HEENT: The patient is atraumatic, normocephalic. PERRLA. Nonicteric sclerae. Oral mucosa is moist. He is edentulous. Tongue is midline. NECK: Supple, nontender. No JVD noted. No carotid bruits auscultated. LUNGS: Clear at the apices. He does have an expiratory wheeze on the right- hand side. No rales or rhonchi noted. CARDIOVASCULAR: S1, S2 present. No murmurs, gallops, or rubs noted. Rate and rhythm are currently regular. He has regular sinus rhythm on telemetry with no ectopy. ABDOMEN: Soft, nontender, nondistended. Positive bowel sounds in all 4 quadrants. : Deferred. MUSCULOSKELETAL: There is no clubbing and no cyanosis, no edema. He has +2 distal pulses palpable. NEUROLOGIC: Extraocular movements are intact. He has PERRLA. The left upper stitcher is slightly diminished and unequal. On that side, he has a modest left pronator drift. In terms of sensation, he has diminished sensation on the left hand and left forearm. Otherwise, rest of his neurologic exam is otherwise nonfocal. PSYCHIATRIC: He is cooperative and appropriate. DIAGNOSTIC STUDIES/LAB DATA: WBCs 13.0, RBCs 4.50, hemoglobin 12.8, hematocrit 39, platelets 280. Sodium 136, potassium 4.4, chloride 100, CO2 of 30, BUN 40, creatinine 2.13, GFR 33.5, glucose 292. AST 18, ALT 21, alk phos 90. Troponin is 0.00. Total protein 7.4, albumin 4.0, globulin 3.4, triglycerides 289, total cholesterol 154, LDL 74, HDL 22.3, B12 of 629, TSH 0.82. Imaging: CTA of the head shows no large vessel occlusion. IMPRESSION: Mr. Maynard is a 49-year-old male patient with history of insulin dependent diabetes mellitus, hypertension and hyperlipidemia, who presents to the emergency department today with complaints of slurred speech and left-sided paresthesias. PLAN: The patient has been admitted to observation. DIAGNOSES: 1. Rule out cerebrovascular accident. I have discussed this case with Dr. Morton, who feels this constellation of symptoms likely represents a lacunar infarct. I have ordered a stat MRI of the brain. He has already had CT and CTA. He was out of the window for a potential TPA when he arrived at the emergency department. I have ordered 325 mg of aspirin, 75 mg of Plavix. He will be restarted on his statin this evening, 40 mg of Lipitor has been ordered. Dr. Morton will continue to follow the patient closely. We will continue to follow the results of the MRI after that test is available. 2. Hypertension. The patient is supposed to be on medications. He is not sure which ones. Part of the issue is that the patient also has some elevated renal function, likely secondary to his diabetes, although he is unaware about his kidney function being compromised. I will place him on some low-dose Norvasc as that is not excreted through the kidneys and continue to monitor his blood pressure closely. 3. Hyperlipidemia. As noted above, he will be restarted on his statin. 4. Chronic kidney disease. It does appear that his creatinine has been elevated since 2017. Creatinine currently is 2.13 and his GFR is in the 33 range. Because he has had contrast for the CTA, I will bolus him with a liter of normal saline and continue him on normal saline at maintenance. Continue to monitor his labs closely tomorrow. 5. Insulin dependent diabetes mellitus. The patient's blood sugar was around 300 when he came in. He also states that his blood sugar has been very elevated at home. I think the additional fluid bolus will help with this. He is utilizing his insulin pump from home. He can continue to use this because his mentation is intact. I have ordered lispro sliding scale as for some reasons he cannot use his pump. He can use the sliding scale. He has been placed on blood sugars a.c., h.s. and consistent carbohydrate diet. 6. Cough and wheeze. The patient states that 2 days ago, he started coughing. He does not have any overt congestion, but he does have a slight wheeze. He does have a history of tobacco use actively; however, it does appear that he might have some upper respiratory viral infection. He does have a mild leukocytosis of 13, but does not have a fever. At this point, I will just place him some guaifenesin with codeine cough syrup. Duo Neb as needed for any wheezing. I do not feel antibiotics are warranted at this time and he can also have some Tylenol as needed. We will continue to monitor his cough. If he does start to get fevers, we can swab him for flu, but at this time, I do not feel that is warranted. 7. DVT prophylaxis. He is low risk. He should ambulate ad-yousuf. 8. Code status. He is a full code. 9. Disposition. Admitted to observation. The rest of the patient's course will be determined by further diagnostics, laboratories, and any other input from other providers as warranted during this admission. TIME SPENT: Sixty five minutes on admission plan of care. This plan of care has been discussed with Dr. Manan Jim, the attending on this case and he is in agreement. EMIL NICOLE, LAURIE [id number]/[facility] #: [id number] SAY
[2019-08-13] MEDS: Atorvastatin* 40 MG TAB PO SCH (22:02)
[2019-08-13] MEDS: amLODIPine TAB* 5 MG PO SCH (22:03)
[2019-08-13] MEDS: NS 0.9% 1000 ML** 1,000 ML IV SCH (23:01)
[2019-08-14 09:19] LABS: ABS Basophils 0.1 10^3/ul (0-0.2); ABS Eosinophils 0.5 10^3/ul (0-0.6); ABS Monocytes 1.2 10^3/ul (0-0.8); ABS Neutrophils 8.8 10^3/ul (1.5-7.7); Eosinophil % 3.8 %; Hematocrit 38 % (42-52); Hemoglobin 12.6 g/dL (14.0-18.0); Mean Corpuscular HGB Conc 33 g/dL (31-36); Mean Corpuscular Hemoglobin 28 pg (27-31); Mean Corpuscular Volume 86 fL (80-94); Mean Platelet Volume 8.5 fL (7.4-10.4); Nucleated Red Blood Cells % 0.1; Platelet Count 283 10^3/uL (150-450); Red Blood Count 4.44 10^6 /uL (4.18-5.48); Red Cell Distribution Width 13 % (10-15); White Blood Count 12.6 10^3/uL (3.5-10.8)
[2019-08-14] MEDS: guaiFENesin/CODIENE 100mg/10mg 5 ML UDC PO PRN ×2 (09:26→20:26)
[2019-08-14] MEDS: amLODIPine TAB* 5 MG PO SCH (09:27)
[2019-08-14] MEDS: Clopidogrel TAB* 75 MG PO SCH (09:27)
[2019-08-14] MEDS: Aspirin 81 mg CHEW TAB* 81 MG TAB.CHEW PO SCH (09:27)
[2019-08-14 09:35] LABS: BUN/Creatinine Ratio 19.9 (8-20); Calcium 8.8 mg/dL (8.6-10.3); EGFR African American 50.5 (>60); EGFR Non-African American 41.7 (>60); Potassium 4.2 mmol/L (3.5-5.0)
[2019-08-14] MEDS ORDERED: Dextrose 50% VIAL 50 ml IV PUSH PRN (13:37)
[2019-08-14] MEDS ORDERED: Insulin GLARGINE(*) 1 UNITS UNIT SUBCUT SCH (14:00)
--- NOTE | 2019-08-14 14:19 | PN ---
Subjective Date of Service: 08/14/19 Length of Stay: 1 Days Neurology is following for the evaluation of suspected stroke. Interval History: The patient continues to have perioral numbness, left hemianesthesia involving mostly the arm, and left sided fatigue. He does not feel right. He states that he can usually press 1,500 lbs but feels that his left leg is tired and heavy. He denied any headache. He denied any neck pain. He has atrophy in the left FDI but does not know why. He denied any elbow pain. He is left handed. Labs: WBC: 12.6 Sodium: 139 Creatinine: 1.76 Glucose: 240 Hemoglobin a1c: 12.3 B12: 629 TSH: 0.82 LDL: 74 IMAGING: CTA head and neck: No LVO or aneurysm MRI brain without contrast 08/13/2019 : No acute infarct Review of Systems: Denied CP, SOB, or palpitations. Objective Active Medications: Acetaminophen (Tylenol Tab*) 650 mg PO Q4H PRN PRN Reason: MILD PAIN or TEMP > 100.4 Albuterol/Ipratropium (Duoneb (Albuterol 2.5 Mg/Ipratropium 0.5 Mg)) 1 neb INH [id number] AWAKE PRN PRN Reason: sob/wheezing Amlodipine Besylate (Norvasc Tab*) 5 mg PO DAILY [facility] Last Admin: 08/14/19 09:27 Dose: 5 mg Aspirin (Aspirin 81 Mg Chew Tab*) 81 mg PO DAILY [facility] Last Admin: 08/14/19 09:27 Dose: 81 mg Atorvastatin Calcium (Lipitor*) 40 mg PO BEDTIME [facility] Last Admin: 08/13/19 22:02 Dose: 40 mg Clopidogrel Bisulfate (Plavix Tab*) 75 mg PO DAILY [facility] Last Admin: 08/14/19 09:27 Dose: 75 mg Dextrose (Dextrose 50% Vial 50 Ml*) 25 ml IV PUSH .FOR FS < 60 - SS PRN PRN Reason: FS < 60 Docusate Sodium (Colace Cap*) 100 mg PO BID PRN PRN Reason: CONSTIPATION Guaifenesin/Codeine Phosphate (Robitussin Ac 100mg-10mg*) 5 ml PO Q6H PRN PRN Reason: COUGH Last Admin: 08/14/19 09:26 Dose: 5 ml Sodium Chloride (Ns 0.9% 1000 Ml) 1,000 mls @ 75 mls/hr IV PER RATE [facility] Last Admin: 08/13/19 23:01 Dose: 75 mls/hr Vital Signs 08/13/19 08/13/19 08/13/19 15:26 15:59 16:01 Temperature 97.3 F Pulse Rate 96 81 80 Respiratory 18 Rate Blood Pressure 138/85 157/90 (mmHg) O2 Sat by Pulse 95 97 98 Oximetry 08/13/19 08/13/19 08/13/19 16:30 17:03 17:30 Temperature Pulse Rate 85 86 111 Respiratory 26 23 Rate Blood Pressure 139/95 136/77 (mmHg) O2 Sat by Pulse 95 98 80 Oximetry 08/13/19 08/13/19 08/13/19 18:00 18:01 18:30 Temperature Pulse Rate 92 90 Respiratory 18 27 21 Rate Blood Pressure 150/73 151/84 (mmHg) O2 Sat by Pulse 98 96 Oximetry 08/13/19 08/13/19 08/13/19 19:00 19:01 19:30 Temperature Pulse Rate Respiratory 23 23 16 Rate Blood Pressure 182/101 150/90 (mmHg) O2 Sat by Pulse Oximetry 08/13/19 08/13/19 08/13/19 20:04 20:44 21:00 Temperature 98.3 F 98.4 F Pulse Rate 87 87 77 Respiratory 26 20 18 Rate Blood Pressure 151/67 157/72 (mmHg) O2 Sat by Pulse 96 98 98 Oximetry 08/14/19 08/14/19 08/14/19 00:04 03:34 07:23 Temperature 97.8 F 97.8 F Pulse Rate 82 75 73 Respiratory 18 16 20 Rate Blood Pressure 142/60 162/80 169/83 (mmHg) O2 Sat by Pulse 91 97 99 Oximetry 08/14/19 11:36 Temperature 98.2 F Pulse Rate 72 Respiratory 18 Rate Blood Pressure 162/83 (mmHg) O2 Sat by Pulse 98 Oximetry Intake and Output Last 24 Hours 08/12/19 08/13/19 08/14/19 08/15/19 06:59 06:59 06:59 06:59 Intake Total 2480 120 Balance 2480 120 Weight 226 lb 3.2 oz Intake: IV Fluids 1999 Oral 480 120 Oxygen Devices in Use Now: None Neurology Exam: General: Well nourished, well developed, and in no acute distress HEENT: Normocephelic/atraumatic, sclera anicteric, mucous membranes moist Neck: Supple Chest: Clear to auscultation bilaterally Cardiovascular: Regular rate and rhythm without murmurs, rubs, gallops Extremities: No clubbing, cyanosis, or edema Skin: new appearing tattoo in the right upper extremity. Neurological Findings: NIHSS: 2 mild dysarthria and left hemianesthesia Awake, alert, and oriented to person, place, and time. Speech: mild dysarthria. Cranial Nerve: PERRL, EOM intact, VFF, no nystagmus, no significant facial asymmetry except for slightly flattening of the nasolabial fold on the left. Motor: s/s throughout, proximal and distal extremities x4 tone/bulk normal except for 4+/5 weakness to shoulder abduction, elbow extension, and hip flexion on the left. He has weakness 4-/5 to finger abduction on the left. Left FDI atrophy. There is no fasciculation. Sensation:Reduced sensation to light touch on the left face and arm in a non- dermatomal distribution. Deep Tendon Reflex: 1+ symmetric in the upper/lower extremities, except for absent ankle reflexes bilaterally. Babinski - down going Finger to nose, rapid alternating movements intact without tremor, no dysdiadochokinesia Gait: intact with good arm swing and stride Result Diagrams: 08/14/19 08:54 08/14/19 08:54 Microbiology and Other Data: Microbiology 08/13/19 21:58 Nasal Screen MRSA (PCR) - Final Nasal Mrsa Detected Assessment/Plan Mr. Maynard is a 49-year-old left-handed man with uncontrolled DMI (A1c 12), hypertension, dyslipidemia, and tobacco abuse who presented to [facility] on 2018 with sudden onset dysarthria, perioral numbness, and left hemiparesthesia. The patient's examination has not changed from yesterday. He denied any neck pain and has no headaches. MRI of the brain showed no evidence of acute stroke. 1. Acute onset dysarthria, perioral numbness and left hemiparesthesia- given the sudden onset of the symptoms, and the lack of headaches or neck pain ( cervical disease would not explain his dysarthria or perioral numbness), I still suspect the patient may have had a small lacunar stroke in the abelardo/ medulla. Other possible causes, which should have resolved by now, would be hyperglycemia causing focal neurological deficits. This cannot be TIA since the symptoms have lasted longer than 24 hours. It is unlikely to be prolonged sensory seizures since he has no risk factors for seizures. Recommendations: - Repeat an MRI brain without contrast to check for any new areas of stroke. MRI can miss a posterior circulatory stroke when done in 24 hours of symptoms onset in 30% of cases. - If the repeat MRI brain is negative, he will need an MRI C spine without contrast. This can be done as an outpatient. - Continue aspirin 81 mg, Plavix 75 mg and atorvastatin 40 mg nightly. Discontinue Plavix on 09/12/2019. - No need for PT/OT given the patient's minimal deficits. - VTE prophylaxis: PCD's/SCDs - No indication for anticoagulation therapy - Pending 2-ECHO with bubble study 2. Hand weakness and atrophy- I suspect this is chronic given the degree of FDI atrophy. He may have underlying asymptomatic ulnar neuropathy or C8 radiculopathy. He does have evidence of cervical degenerative disc disease at C7-8 on the CTA. Recommendations: - Outpatient neurology follow-up and referral. He will need an EMG/NCS as an outpatient 3. DMI, HTN, Dyslipidemia, tobacco abuse- education and counseling was provided. I will sign out the case to Dr. King jaramillo. Please contact us for any questions.
[2019-08-14] MEDS ORDERED: Insulin LISPRO* 1 UNITS UNIT SUBCUT SCH (16:30)
--- NOTE | 2019-08-14 16:34 | HP ---
H&P (Free Text) History and Physical: CC: LT sided weakness, facial swelling and dysarthria HPI: Pt states at 10 am on 08/13/19 that his face had become swollen, had facial drooping, LT sided numbness on LUE and was slurring his words. Pt states that it is painful to smile and has tingling on the dorsal aspect of LUE. Girlfriend confirmed symptoms and drove to the ED. Pt admits to having a cold the last couple of weeks c/ a chronic productive cough of several months. Pt states he has been producing yellow sputum. Pt admits to SOB for 1 year duration and states he is at his baseline. Pt denies fever/chills, changes in vision, dysphagia, ROJAS, dysuria or abdominal pain. Pt denies weakness in lower extremities. Home Medications Medication Instructions Recorded Confirmed Type Insulin Lispro [Admelog] 0 - 100 unit SQ DAILY 08/13/19 08/13/19 History Acetaminophen (Tylenol Tab*) 650 mg PO Q4H PRN PRN Reason: MILD PAIN or TEMP > 100.4 Albuterol/Ipratropium (Duoneb (Albuterol 2.5 Mg/Ipratropium 0.5 Mg)) 1 neb INH RT.[id number] AWAKE PRN PRN Reason: sob/wheezing Amlodipine Besylate (Norvasc Tab*) 5 mg PO DAILY [facility] Last Admin: 08/14/19 09:27 Dose: 5 mg Aspirin (Aspirin 81 Mg Chew Tab*) 81 mg PO DAILY [facility] Last Admin: 08/14/19 09:27 Dose: 81 mg Atorvastatin Calcium (Lipitor*) 40 mg PO BEDTIME [facility] Last Admin: 08/13/19 22:02 Dose: 40 mg Clopidogrel Bisulfate (Plavix Tab*) 75 mg PO DAILY [facility] Last Admin: 08/14/19 09:27 Dose: 75 mg Dextrose (Dextrose 50% Vial 50 Ml*) 25 ml IV PUSH .FOR FS < 60 - SS PRN PRN Reason: FS < 60 Docusate Sodium (Colace Cap*) 100 mg PO BID PRN PRN Reason: CONSTIPATION Guaifenesin/Codeine Phosphate (Robitussin Ac 100mg-10mg*) 5 ml PO Q6H PRN PRN Reason: COUGH Last Admin: 08/14/19 09:26 Dose: 5 ml Sodium Chloride (Ns 0.9% 1000 Ml) 1,000 mls @ 75 mls/hr IV PER RATE [facility] Last Admin: 08/13/19 23:01 Dose: 75 mls/hr MHx: DM type II uncontrolled c/ HgbA1c of 12.3. Pt is on insulin pump. Hyperlipidemia, HTN. Surgeries: Abscess drainage on head 2-3 months ago. Resolved. Immunizations: up to date. Did not receive flu vaccination. Allergies: NKA, NKDA FHx: Mom of pancreatic cancer. Father of CKD. SHx: Pt has worked at [employer] for 2 years. Has a girlfriend for 8 months and states relationship is well. has 6 boys in good health. Tobacco: current smoker , 13 pack/yr. Etoh: hx of alcohol abuse. sober for 3 years. No illicit drug use. Temp Pulse Resp BP Pulse Ox 98.2 F 72 18 162/83 98 08/14/19 11:36 08/14/19 11:36 08/14/19 11:36 08/14/19 11:36 08/14/19 11:36 General: Sitting upright. NAD. A/Ox3. HEENT: Apparent facial droop c/ sparing of forehead. Lips are swollen. Slurred speech noted. Neck supple, NT. Cardio: RRR. No MRG. Pulm: Normal breath sounds. No rhales, rhonchi or wheezing. Abdomen: soft, NT/ND. No rebound or guarding. Insulin pump intact and working. Neuro: Muscle strength 5/5 blt lower extremities and on 4/5 on shrugging, 4/5 on flexion/extension/glass checker strength of LUE. 2+ radial pulse Blt. New tattoo noted on RUE. Extremities: No edema noted. Dorsalis pedis 2+. Laboratory Tests 08/14/19 08/14/19 08/14/19 08:54 08:54 11:41 WBC 12.6 H Hgb 12.6 L Hct 38 L Absolute Neuts (auto) 8.8 H BUN 35 H Creatinine 1.76 H Glucose 240 H POC Glucose (mg/dL) 252 H 08/13/19 15:50 Hemoglobin A1c 12.3 H Imaging/Microbiology: CT scan showed no abnormalities. MRI showed no abnormalities. ECG showed normal sinus rhythm. MRSA+ Assessment: 49 M MHx of uncontrolled DM type II, HTN and hyperlipidemia presents with LT facial droop, dyarthria, and LUE parathesia. #dysarthria, LUE parathesia, and facial drooping -cervical dz unlikely due to dysarthria and perioral numbness . -neurology has suspicion of possible lacunar infarct and will repeat MRI this afternoon. -possible cause due to hyperglycemia but should have resolved -TIA ruled out due to symptoms lasting longer than 24 hrs -will continue to monitor on tele -continue plan per neurology -anti-platelet therapy initiated c/ ASA 81mg, Clopidogrel 75mg PO daily #DM type II -insulin pump basal rate needs adjustment -Pt is no in hyperglycemic crisis at this time and will continue glucose monitoring Q4H -carb consistent diet #HTN -amlodopine 5mg PO daily added -continue atorvastatin 40 mg PO Hs -continue to monitor vitals #Cough -continue albuterol/iprotropium 1 neb PO Q4H prn -continue robotussin 5ml PO Q6h -pt currently lacks fever/chills or any signs of infection except leukocytosis but is trending towards normal limit.
--- NOTE | 2019-08-14 17:45 | PN ---
Subjective Date of Service: 08/14/19 Interval History: Patient still complained of left arm numbness and perioral numbness. Noted glucose at 200-300 despite the fact he is on insulin pump with base rate 1.3 Objective Active Medications: Acetaminophen (Tylenol Tab*) 650 mg PO Q4H PRN PRN Reason: MILD PAIN or TEMP > 100.4 Albuterol/Ipratropium (Duoneb (Albuterol 2.5 Mg/Ipratropium 0.5 Mg)) 1 neb INH RT.[id number] AWAKE PRN PRN Reason: sob/wheezing Amlodipine Besylate (Norvasc Tab*) 5 mg PO DAILY [facility] Last Admin: 08/14/19 09:27 Dose: 5 mg Aspirin (Aspirin 81 Mg Chew Tab*) 81 mg PO DAILY [facility] Last Admin: 08/14/19 09:27 Dose: 81 mg Atorvastatin Calcium (Lipitor*) 40 mg PO BEDTIME [facility] Last Admin: 08/13/19 22:02 Dose: 40 mg Clopidogrel Bisulfate (Plavix Tab*) 75 mg PO DAILY [facility] Last Admin: 08/14/19 09:27 Dose: 75 mg Dextrose (Dextrose 50% Vial 50 Ml*) 25 ml IV PUSH .FOR FS < 60 - SS PRN PRN Reason: FS < 60 Docusate Sodium (Colace Cap*) 100 mg PO BID PRN PRN Reason: CONSTIPATION Guaifenesin/Codeine Phosphate (Robitussin Ac 100mg-10mg*) 5 ml PO Q6H PRN PRN Reason: COUGH Last Admin: 08/14/19 09:26 Dose: 5 ml Sodium Chloride (Ns 0.9% 1000 Ml) 1,000 mls @ 75 mls/hr IV PER RATE [facility] Last Admin: 08/13/19 23:01 Dose: 75 mls/hr Vital Signs - 8 hr 08/14/19 11:36 Temperature 98.2 F Pulse Rate 72 Respiratory 18 Rate Blood Pressure 162/83 (mmHg) O2 Sat by Pulse 98 Oximetry Oxygen Devices in Use Now: None Exam: General: comfortably sitting Cardio: RRR. No MRG. Peripheral pulses 2+. Pulmonary: Clear breath sounds. No rhales, rhonchi or wheezing. Abdomen: Soft, NT/ND. No rebound or guarding. Extremities: no clubbing, cyanosis Neuro: Cranial Nerve: mild dysarthria, mild nasolabial flattening of left side Motor: left side upper arm, arm, thigh strength 4+ Sensation: reduced on left no hyperreflexia Result Diagrams: 08/14/19 08:54 08/14/19 08:54 Microbiology and Other Data: Microbiology 08/13/19 21:58 Nasal Screen MRSA (PCR) - Final Nasal Mrsa Detected Assess/Plan/Problems-Billing Assessment: 49 y/o male with uncontrolled T2DM with HbA1c 12, HTN, hyperlipidemia, tabacco use, presented with sudden onset dysarthria, left sided numbness, found to have mild left facial droop, left side weakness, left hemiparesthesia.. - Patient Problems (1) Left sided numbness Current Visit: Yes Status: Acute Code(s): R20.0 - ANESTHESIA OF SKIN SNOMED Code(s): 76451559 Comment: - concerning for stroke with sudden onset of left sided weakness, numbness and left facial droop although initial MRI negative. Other differential could be hyperglycemia caused neurological sx. - appreciate neuro rec - repeat MRI as per neurology, will need MRI c spine without contrast if mri brain neg - continue ASA 81mg, plavix 75mg for 1 month (till 09/12), atorvastatin 40mg - a/w TTE with bubble - DM control as mentioned below - continue iv fluid, allow permissive hypertension with sBP up to 180mmhg (2) Diabetes mellitus Current Visit: Yes Status: Acute Code(s): E11.9 - TYPE 2 DIABETES MELLITUS WITHOUT COMPLICATIONS SNOMED Code(s): 34253139 Comment: - T2Dm on insulin pump 1.3U/h - poorly controlled , HbA1c 12.3 - need base rate adjustment on insulin pump however unable to be done inpatient so far, will need outpatient management for it. - not in hyperglycemia crisis now (3) DVT prophylaxis Current Visit: Yes Status: Acute Code(s): Z29.9 - ENCOUNTER FOR PROPHYLACTIC MEASURES, UNSPECIFIED SNOMED Code(s): 085156776 Status and Disposition: Inpatient Medicine. No PT required Attestation Documenting Resident: Estrellita Blakely Supervising Physician: Rylee Dubon Attending/Supervising Physician Comment: His major complaint at this time is left upper lip pins and needles sensation. He notes ongoing mild left upper extremity strength, which is confirmed on my physical examination, with LUE wool dyer strength 4/5 and RUE 5/5. This continues to be most suspicious for an occult CVA. We are treating him as such and will follow up repeat MRI as ordered by Dr. Morton. Attestation: This service has been performed in part by a resident under the direction of a teaching physician.I, Rylee Dubon, performed the service, or was physically present during the critical, or trammell portions of the service, furnished by the resident. I participated in the management of the patient.
[2019-08-14] MEDS: NS 0.9% 1000 ML** 1,000 ML IV SCH (18:37)
[2019-08-14] MEDS ORDERED: amLODIPine TAB* 5 MG PO ONE (20:01)
[2019-08-14] MEDS: Atorvastatin* 40 MG TAB PO SCH (20:26)
[2019-08-14] MEDS: Nicotine PATCH 21 MG/24 HR* PATCH TRANSDERM SCH (20:27)
[2019-08-14] MEDS: Insulin LISPRO* 1 UNITS UNIT SUBCUT SCH (20:53)
[2019-08-14 21:03] LABS: Urine Appearance Clear; Urine Bacteria Absent (Absent); Urine Bilirubin Negative (Negative); Urine Blood 1+ (Negative); Urine Color Yellow; Urine Glucose 2+(150 mg/dL) (Negative); Urine Ketones Negative (Negative); Urine Nitrite Negative (Negative); Urine Protein 2+(100 mg/dL) (Negative); Urine Red Blood Cell Trace(0-2/hpf) (Absent); Urine Specific Gravity 1.013 (1.010-1.030); Urine Urobilinogen Negative (Negative); Urine White Blood Cell Absent (Absent)
[2019-08-14] MEDS: Acetaminophen TAB* 325 MG PO PRN (21:30)
[2019-08-15] MEDS: Acetaminophen TAB* 325 MG PO PRN ×2 (05:32→17:23)
--- NOTE | 2019-08-15 06:00 | PN ---
Hospitalist Progress Note Date of Service: 08/15/19 Called to see patient as states his numbness and tingling sensation have increased in intensity in both left side and his myra-oral area. Otherwise pupils reactive. Vital signs stable with SBP in 160s at bedside. Spoke with Dr. Hernandez who will come early to evaluate but recommended to do Repeat CT brain in the mean time to r/o any bleeding.
--- NOTE | 2019-08-15 08:00 | PN ---
Subjective Date of Service: 08/15/19 Length of Stay: 2 Days Interval History: I reviewed the prior notes and received sign-out from Dr. Morton. Overnight, the patient did well but this am, awoke and went to the bathroom and complained of worsening left facial numbness, "swelling" and weakness on the left side. He also told the nurse that his bilateral lower extremity numbness and tingling was worse, which he confirmed with me. No headaches, problems swallowing. No new speech difficulties but he feels his speech is slurred and his face is swollen. No new right sided symptoms. I received a call from the overnight hospitalist regarding his changes and I requested a CT scan be repeated. Repeat CT this am: No changes Review of Systems: Denied CP, SOB, or palpitations. Objective Active Medications: Acetaminophen (Tylenol Tab*) 650 mg PO Q4H PRN PRN Reason: MILD PAIN or TEMP > 100.4 Last Admin: 08/15/19 05:32 Dose: 650 mg Albuterol/Ipratropium (Duoneb (Albuterol 2.5 Mg/Ipratropium 0.5 Mg)) 1 neb INH [id number] AWAKE PRN PRN Reason: sob/wheezing Amlodipine Besylate (Norvasc Tab*) 10 mg PO DAILY [facility] Aspirin (Aspirin 81 Mg Chew Tab*) 81 mg PO DAILY [facility] Last Admin: 08/14/19 09:27 Dose: 81 mg Atorvastatin Calcium (Lipitor*) 40 mg PO BEDTIME [facility] Last Admin: 08/14/19 20:26 Dose: 40 mg Clopidogrel Bisulfate (Plavix Tab*) 75 mg PO DAILY [facility] Last Admin: 08/14/19 09:27 Dose: 75 mg Dextrose (Dextrose 50% Vial 50 Ml*) 25 ml IV PUSH .FOR FS < 60 - SS PRN PRN Reason: FS < 60 Docusate Sodium (Colace Cap*) 100 mg PO BID PRN PRN Reason: CONSTIPATION Guaifenesin/Codeine Phosphate (Robitussin Ac 100mg-10mg*) 5 ml PO Q6H PRN PRN Reason: COUGH Last Admin: 08/14/19 20:26 Dose: 5 ml Sodium Chloride (Ns 0.9% 1000 Ml) 1,000 mls @ 75 mls/hr IV PER RATE [facility] Last Admin: 08/14/19 18:37 Dose: 75 mls/hr Insulin Human Lispro (Humalog*) 0 units SUBCUT ACHS [facility]; Protocol Last Admin: 08/14/19 20:53 Dose: 3 units Nicotine (Nicotine Patch 21 Mg/24 Hr*) 1 patch TRANSDERM DAILY [facility] Last Admin: 08/14/19 20:27 Dose: 1 patch Pharmacy Profile Note (Nicotine Patch Removal Note*) 1 note PATCH OFF 2100 [facility] Vital Signs 08/14/19 08/14/19 08/14/19 11:36 19:33 19:40 Temperature 98.2 F 97.4 F Pulse Rate 72 81 Respiratory 18 20 Rate Blood Pressure 162/83 182/102 178/98 (mmHg) O2 Sat by Pulse 98 100 Oximetry 08/14/19 08/15/19 08/15/19 23:43 03:24 05:38 Temperature 98.0 F 97.7 F 98.2 F Pulse Rate 78 72 91 Respiratory 21 20 24 Rate Blood Pressure 149/73 163/72 162/61 (mmHg) O2 Sat by Pulse 96 96 100 Oximetry Intake and Output Last 24 Hours 08/13/19 08/14/19 08/15/19 08/16/19 06:59 06:59 06:59 05:59 Intake Total 2480 1958 Output Total 0 Balance 2481958 Weight 226 lb 3.2 oz Intake: IV Fluids 1999 999 Oral 480 960 Output: Urine 0 Oxygen Devices in Use Now: None Neurology Exam: General: Well nourished, well developed, and in no acute distress HEENT: Normocephalic/atraumatic, sclera anicteric, mucous membranes moist. Some redness above the upper lip below the nose Neck: Supple Chest: Clear to auscultation bilaterally Cardiovascular: Regular rate and rhythm without murmurs, rubs, gallops Extremities: No clubbing, cyanosis, or edema Skin: Scattered tattoos Neurological Findings: Awake, alert, and oriented to person, place, and time. Speech: Subtle dysarthria, no aphasia Cranial Nerve: PERRL, EOM intact, VFF, no nystagmus, Flattening of the left NLF with some mild smile weakness Motor: Good resistance, mild drift in the LUE, subtle weakness of the proximal left arm and leg. FDI atrophy on the left noted with some finger abduction weakness in the left hand, proximal and distal extremities x4 tone/bulk normal except for 4+/5 weakness to shoulder abduction, elbow extension, and hip flexion on the left. Sensation:Diminished to LT/PP in a stocking distribution in the legs to the knees with paresthesias in the left arm/leg, non-dermatomal Deep Tendon Reflex: 1+ symmetric in the upper/lower extremities, absent ankles, upgoing Babinski Finger to nose, rapid alternating movements intact without tremor, no dysdiadochokinesia Result Diagrams: 08/14/19 08:54 08/14/19 08:54 Microbiology and Other Data: Microbiology 08/13/19 21:58 Nasal Screen MRSA (PCR) - Final Nasal Mrsa Detected Assessment/Plan Mr. Maynard is a 49-year-old left-handed man with uncontrolled DMI (A1c 12), hypertension, dyslipidemia, and tobacco abuse who presented to [facility] on 2018 with sudden onset dysarthria, perioral numbness, and left hemiparesthesia. MRI X 2 shows no evidence for acute stroke. Persistent left face/arm/leg symptoms with evidence of lower extremity neuropathy as well, likely diabetic in nature. 1. Persistent symptoms continue to point to a small stroke, possibly brain stem which is poorly visualized on MRI. I suspect his symptoms are waxing and waning to a certain degree. Continue secondary stroke risk factor reduction: --DAPT for 30 days then D/C Plavix on 09.12.19 --Statin: goal LDL < 70 --BP control --Blood glucose control is critical --Echo pending 2. FDI atrophy and hand weakness on the left likely ulnar in nature vs. radiculopathy. Would plan for O/P EMG/NCS/MRI C-spine. No complaints of neck pain at this time but evidence of C7-8 radiculopathy on imaging. 3. Defer to primary regarding management of his underlying medical issues If Echo is negative and the patient remains stable, he can by discharged home with close follow up. I would like to see him back in my clinic in 4-6 weeks. I have reassured the patient and his significant other that I suspect a small stroke with waxing and waning symptoms and we are treating it as such. No other intervention at this time. I did reassure his significant other that the lipoma on his forehead is not related to his symptoms.
[2019-08-15] MEDS: Insulin LISPRO* 1 UNITS UNIT SUBCUT SCH ×4 (08:54→22:06)
[2019-08-15] MEDS: Aspirin 81 mg CHEW TAB* 81 MG TAB.CHEW PO SCH (08:55)
[2019-08-15] MEDS: Clopidogrel TAB* 75 MG PO SCH (08:55)
[2019-08-15] MEDS: amLODIPine TAB* 5 MG PO SCH (08:55)
[2019-08-15] MEDS: Nicotine PATCH 21 MG/24 HR* PATCH TRANSDERM SCH (10:46)
[2019-08-15] MEDS: NS 0.9% 1000 ML** 1,000 ML IV SCH (10:48)
--- NOTE | 2019-08-15 11:04 | PN ---
Hospitalist Progress Note Date of Service: 08/15/19 S: Increased symptoms this morning. Rpt CT brain was ordered and showed no ischemic changes. Pt continues to complain of Lt upper lip swelling, facial droop, and LUE tingling sensation. Pt is now complaining of new Blt LE tingling sensation and states it is worse than his normal neuropathy. Pt denies fever/ chill, changes in vision, ROJAS, N/V, SOB, chest pain, dizziness, abdominal pain, dysuria or abnormal BMs. Acetaminophen (Tylenol Tab*) 650 mg PO Q4H PRN PRN Reason: MILD PAIN or TEMP > 100.4 Last Admin: 08/15/19 05:32 Dose: 650 mg Albuterol/Ipratropium (Duoneb (Albuterol 2.5 Mg/Ipratropium 0.5 Mg)) 1 neb INH [id number] AWAKE PRN PRN Reason: sob/wheezing Amlodipine Besylate (Norvasc Tab*) 10 mg PO DAILY [facility] Last Admin: 08/15/19 08:55 Dose: 10 mg Aspirin (Aspirin 81 Mg Chew Tab*) 81 mg PO DAILY [facility] Last Admin: 08/15/19 08:55 Dose: 81 mg Atorvastatin Calcium (Lipitor*) 40 mg PO BEDTIME [facility] Last Admin: 08/14/19 20:26 Dose: 40 mg Clopidogrel Bisulfate (Plavix Tab*) 75 mg PO DAILY [facility] Last Admin: 08/15/19 08:55 Dose: 75 mg Dextrose (Dextrose 50% Vial 50 Ml*) 25 ml IV PUSH .FOR FS < 60 - SS PRN PRN Reason: FS < 60 Docusate Sodium (Colace Cap*) 100 mg PO BID PRN PRN Reason: CONSTIPATION Guaifenesin/Codeine Phosphate (Robitussin Ac 100mg-10mg*) 5 ml PO Q6H PRN PRN Reason: COUGH Last Admin: 08/14/19 20:26 Dose: 5 ml Sodium Chloride (Ns 0.9% 1000 Ml) 1,000 mls @ 75 mls/hr IV PER RATE [facility] Last Admin: 08/15/19 10:48 Dose: 75 mls/hr Insulin Human Lispro (Humalog*) 0 units SUBCUT ACHS [facility]; Protocol Last Admin: 08/15/19 08:54 Dose: 9 units Nicotine (Nicotine Patch 21 Mg/24 Hr*) 1 patch TRANSDERM DAILY [facility] Last Admin: 08/15/19 10:46 Dose: 1 patch Pharmacy Profile Note (Nicotine Patch Removal Note*) 1 note PATCH OFF 2100 [facility]HESH O: Temp Pulse Resp BP Pulse Ox 97 F 69 16 151/69 98 08/15/19 08:14 08/15/19 08:14 08/15/19 08:14 08/15/19 08:14 08/15/19 08:14 General: Sitting upright. NAD. A/Ox3 HEENT: Lips still appear mildly swollen but not increased. Mild facial droop c/ facial sparing noted. Neck supple, NT. Neuro: Lt upper extremity MS 4/5. LE sensation decreased Blt. Reflexes 2/4. Mild left arm drift. Cardio: RRR. No MRG. Lungs: clear to auscultation. No rhales, rhonci, or wheezes. Abd: Soft, ND/NT. Ext: Normal strength in LE blt. Peripheral pulses 2+. Labs: UA showed 2+ protein, 1+ urine blood, urine glucose 2+. POC: 191 CT scan: no abnormalities found MRI: no abnormalities found A: 49 M MHx of HTN, hyperlipidemia, tobacco use, and uncontrolled DM type II c/ HgbA1c of 12.3 presented c/ acute onset Lt sided weakness, dysarthria, and Lt sided facial droop. #Lt sided weakness -repeat CT scan showed no ischemic changes and MRI showed no signs of stroke but neurology still has strong suspicion of lacunar stroke. -continue tx per neurology. Pt will f/u with neurology as outpatient. Possible c -spine MRI to rule out lower spinal stroke. -continue atorvastatin 40mg PO daily -continue Plavix and ASA for 30days #HTN -increased amlodopine 10mg -recommend vishal-i substitution for amlodopine as outpt -f/u c/ PCP for posible medication substitution and monitoring for A/E -smoke cessation; pt was educated on importance of cessation. Will receive nicotine patches on discharge. #DM -corrective dose insulin started -consistent carb diet -insulin pump needs adjustment, needs f/u c/ endocrine outpt. -UA showed protein and glucose in urine, supportive for substitution to Vishal-i.
[2019-08-15] MEDS: guaiFENesin/CODIENE 100mg/10mg 5 ML UDC PO PRN (12:29)
--- NOTE | 2019-08-15 16:06 | PN ---
Subjective Date of Service: 08/15/19 Interval History: Patient complained of new bilateral leg tingling today on top of his existing symptoms including left upper lip swelling, facial droop, left arm tingling. No vision changes, no dysarthria, no headache. Glucose is better controlled today in 200s range Objective Active Medications: Acetaminophen (Tylenol Tab*) 650 mg PO Q4H PRN PRN Reason: MILD PAIN or TEMP > 100.4 Last Admin: 08/15/19 05:32 Dose: 650 mg Albuterol/Ipratropium (Duoneb (Albuterol 2.5 Mg/Ipratropium 0.5 Mg)) 1 neb INH [id number] AWAKE PRN PRN Reason: sob/wheezing Amlodipine Besylate (Norvasc Tab*) 10 mg PO DAILY [facility] Last Admin: 08/15/19 08:55 Dose: 10 mg Aspirin (Aspirin 81 Mg Chew Tab*) 81 mg PO DAILY [facility] Last Admin: 08/15/19 08:55 Dose: 81 mg Atorvastatin Calcium (Lipitor*) 40 mg PO BEDTIME [facility] Last Admin: 08/14/19 20:26 Dose: 40 mg Clopidogrel Bisulfate (Plavix Tab*) 75 mg PO DAILY [facility] Last Admin: 08/15/19 08:55 Dose: 75 mg Dextrose (Dextrose 50% Vial 50 Ml*) 25 ml IV PUSH .FOR FS < 60 - SS PRN PRN Reason: FS < 60 Docusate Sodium (Colace Cap*) 100 mg PO BID PRN PRN Reason: CONSTIPATION Guaifenesin/Codeine Phosphate (Robitussin Ac 100mg-10mg*) 5 ml PO Q6H PRN PRN Reason: COUGH Last Admin: 08/15/19 12:29 Dose: 5 ml Sodium Chloride (Ns 0.9% 1000 Ml) 1,000 mls @ 75 mls/hr IV PER RATE [facility] Last Admin: 08/15/19 10:48 Dose: 75 mls/hr Insulin Human Lispro (Humalog*) 0 units SUBCUT ACHS [facility]; Protocol Last Admin: 08/15/19 12:47 Dose: 6 units Nicotine (Nicotine Patch 21 Mg/24 Hr*) 1 patch TRANSDERM DAILY [facility] Last Admin: 08/15/19 10:46 Dose: 1 patch Pharmacy Profile Note (Nicotine Patch Removal Note*) 1 note PATCH OFF 2100 [facility] Vital Signs - 8 hr 08/15/19 08/15/19 08/15/19 08:00 08:14 11:35 Temperature 97 F 97 F Pulse Rate 69 73 Respiratory 16 16 17 Rate Blood Pressure 151/69 165/82 (mmHg) O2 Sat by Pulse 98 97 Oximetry 08/15/19 15:33 Temperature 97.5 F Pulse Rate 85 Respiratory 18 Rate Blood Pressure 155/86 (mmHg) O2 Sat by Pulse 97 Oximetry Oxygen Devices in Use Now: None Exam: GEN: in no acute distress HEENT: Normocephalic/atraumatic, sclera anicteric, mucous membranes moist. Neck: Supple Chest: Clear to auscultation bilaterally Cardiovascular: Regular rate and rhythm without murmurs, rubs, gallops Extremities: No clubbing, cyanosis, or edema Skin: Scattered tattoos Neuro: alert, oriented; no aphasia, subtle dysarthria. mild left pronator drift, muscle strength left side 4+ while right 5 sensation: diminished in left leg in a stocking distribution Reflexes: not brisk. finger to nose normal Result Diagrams: 08/14/19 08:54 08/14/19 08:54 Microbiology and Other Data: Microbiology 08/13/19 21:58 Nasal Screen MRSA (PCR) - Final Nasal Mrsa Detected Assess/Plan/Problems-Billing Assessment: 49 y/o male with uncontrolled T2DM with HbA1c 12, HTN, hyperlipidemia, tabacco use, presented with sudden onset dysarthria, left sided numbness, found to have mild left facial droop, left side weakness, left hemiparesthesia, likely an ischemic stroke despite negative MRI, other possibilities include hyperglycemia induced neuropathy vs cervical neuropathy. - Patient Problems (1) Left sided numbness Current Visit: Yes Status: Acute Code(s): R20.0 - ANESTHESIA OF SKIN SNOMED Code(s): 28728220 Comment: - likely ischemic stroke with sudden onset of left sided weakness, numbness and left facial droop despite 2 negative MRI. Other differential could be hyperglycemia induced neuropathy vs cervical neuropathy vs somatization. - appreciate neuro rec - continue ASA 81mg, plavix 75mg for 1 month (till 09/12), atorvastatin 40mg - a/w TTE with bubble - MRI c spine without contrast can be done outpatient - DM control as mentioned below - continue iv fluid, allow permissive hypertension with sBP up to 180mmhg (2) Diabetes mellitus Current Visit: Yes Status: Acute Code(s): E11.9 - TYPE 2 DIABETES MELLITUS WITHOUT COMPLICATIONS SNOMED Code(s): 74598298 Comment: - T2Dm on insulin pump 1.3U/h - poorly controlled , HbA1c 12.3 - need base rate adjustment on insulin pump however unable to be done inpatient so far, will need outpatient management for that. - adding meal time corrective dose right now (3) DVT prophylaxis Current Visit: Yes Status: Acute Code(s): Z29.9 - ENCOUNTER FOR PROPHYLACTIC MEASURES, UNSPECIFIED SNOMED Code(s): 224719689 Comment: ambulatory (4) Smoking addiction Current Visit: Yes Status: Acute Code(s): F17.200 - NICOTINE DEPENDENCE, UNSPECIFIED, UNCOMPLICATED SNOMED Code(s): 876605812 Comment: keen for smoking cessation start nicotine patch inpatient Status and Disposition: Inpatient Medicine. No PT required. Can go home once TTE done. Attestation Documenting Resident: Estrellita Blakely Supervising Physician: Rylee Dubon Attending/Supervising Physician Comment: Despite negative MRIs, still consistent with acute CVA and we are treating as such. Attestation: This service has been performed in part by a resident under the direction of a teaching physician.I, Rylee Dubon, performed the service, or was physically present during the critical, or trammell portions of the service, furnished by the resident. I participated in the management of the patient.
[2019-08-15] MEDS ORDERED: Nicotine Patch Removal NOTE PATCH OFF SCH (21:00)
[2019-08-15] MEDS: Atorvastatin* 40 MG TAB PO SCH (22:06)
[2019-08-16] MEDS: NS 0.9% 1000 ML** 1,000 ML IV SCH (01:18)
[2019-08-16] MEDS: Insulin LISPRO* 1 UNITS UNIT SUBCUT SCH ×2 (08:51→12:07)
[2019-08-16] MEDS: Nicotine PATCH 21 MG/24 HR* PATCH TRANSDERM SCH (08:52)
[2019-08-16] MEDS: amLODIPine TAB* 5 MG PO SCH (08:53)
[2019-08-16] MEDS: Clopidogrel TAB* 75 MG PO SCH (08:53)
[2019-08-16] MEDS: Aspirin 81 mg CHEW TAB* 81 MG TAB.CHEW PO SCH (08:53)
--- NOTE | 2019-08-16 09:05 | PN ---
Subjective Date of Service: 08/16/19 Length of Stay: 3 Days Interval History: Doing better. Continues to have numbness and tingling in the LEs bilaterally. No new focal numbness, tingling or weakness. Occasional tingling of the fingertips. Notes no problems swallowing or speaking. No headaches, no vision changes. Ambulating without assistance. Objective Active Medications: Acetaminophen (Tylenol Tab*) 650 mg PO Q4H PRN PRN Reason: MILD PAIN or TEMP > 100.4 Last Admin: 08/15/19 17:23 Dose: 650 mg Albuterol/Ipratropium (Duoneb (Albuterol 2.5 Mg/Ipratropium 0.5 Mg)) 1 neb INH [id number] AWAKE PRN PRN Reason: sob/wheezing Amlodipine Besylate (Norvasc Tab*) 10 mg PO DAILY [facility] Last Admin: 08/16/19 08:53 Dose: 10 mg Aspirin (Aspirin 81 Mg Chew Tab*) 81 mg PO DAILY [facility] Last Admin: 08/16/19 08:53 Dose: 81 mg Atorvastatin Calcium (Lipitor*) 40 mg PO BEDTIME [facility] Last Admin: 08/15/19 22:06 Dose: 40 mg Clopidogrel Bisulfate (Plavix Tab*) 75 mg PO DAILY [facility] Last Admin: 08/16/19 08:53 Dose: 75 mg Dextrose (Dextrose 50% Vial 50 Ml*) 25 ml IV PUSH .FOR FS < 60 - SS PRN PRN Reason: FS < 60 Docusate Sodium (Colace Cap*) 100 mg PO BID PRN PRN Reason: CONSTIPATION Guaifenesin/Codeine Phosphate (Robitussin Ac 100mg-10mg*) 5 ml PO Q6H PRN PRN Reason: COUGH Last Admin: 08/15/19 12:29 Dose: 5 ml Sodium Chloride (Ns 0.9% 1000 Ml) 1,000 mls @ 75 mls/hr IV PER RATE [facility] Last Admin: 08/16/19 01:18 EDT Dose: 75 mls/hr Insulin Human Lispro (Humalog*) 0 units SUBCUT ACHS [facility]; Protocol Last Admin: 08/16/19 08:51 Dose: 6 units Nicotine (Nicotine Patch 21 Mg/24 Hr*) 1 patch TRANSDERM DAILY [facility] Last Admin: 08/16/19 08:52 Dose: 1 patch Pharmacy Profile Note (Nicotine Patch Removal Note*) 1 note PATCH OFF 2100 [facility] Last Admin: 08/15/19 21:27 Dose: Not Given Vital Signs 08/15/19 08/15/19 08/15/19 11:35 15:33 19:57 Temperature 97 F 97.5 F 98.4 F Pulse Rate 73 85 81 Respiratory 17 18 17 Rate Blood Pressure 165/82 155/86 139/67 (mmHg) O2 Sat by Pulse 97 97 97 Oximetry 08/15/19 08/16/19 08/16/19 23:31 03:04 07:57 Temperature 98.4 F 98.5 F 97.6 F Pulse Rate 92 81 78 Respiratory 19 20 16 Rate Blood Pressure 150/58 153/88 162/93 (mmHg) O2 Sat by Pulse 94 96 98 Oximetry 08/16/19 08:45 Temperature Pulse Rate Respiratory 16 Rate Blood Pressure (mmHg) O2 Sat by Pulse Oximetry Intake and Output Last 24 Hours 08/14/19 08/15/19 08/16/19 08/17/19 07:59 07:59 06:59 06:59 Intake Total Output Total Balance Weight Intake: IV Fluids Oral Output: Urine Oxygen Devices in Use Now: None Neurology Exam: General: Well nourished, well developed, and in no acute distress HEENT: Normocephalic/atraumatic, sclera anicteric, mucous membranes moist. Some redness above the upper lip below the nose Neck: Supple Chest: Clear to auscultation bilaterally Cardiovascular: Regular rate and rhythm without murmurs, rubs, gallops Extremities: No clubbing, cyanosis, or edema Skin: Scattered tattoos Neurological Findings: Awake, alert, and oriented to person, place, and time. Speech: Subtle dysarthria, no aphasia Cranial Nerve: PERRL, EOM intact, VFF, no nystagmus, Flattening of the left NLF with some mild smile weakness Motor: Good resistance, mild drift in the LUE, subtle weakness of the proximal left arm and leg. 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 Sensation:Diminished to LT/PP in a stocking distribution in the legs to the knees with paresthesias in the left arm/leg, non-dermatomal Deep Tendon Reflex: 1+ symmetric in the upper/lower extremities, absent ankles, upgoing Babinski Finger to nose, rapid alternating movements intact without tremor, no dysdiadochokinesia Ambulating without assistance, wide based Result Diagrams: 08/14/19 08:54 08/14/19 08:54 Microbiology and Other Data: Microbiology 08/13/19 21:58 Nasal Screen MRSA (PCR) - Final Nasal Mrsa Detected Assessment/Plan Mr. Maynard is a 49-year-old left-handed man with uncontrolled DMI (A1c 12), hypertension, dyslipidemia, and tobacco abuse who presented to [facility] on 2018 with sudden onset dysarthria, perioral numbness, and left hemiparesthesia. MRI X 2 shows no evidence for acute stroke. Persistent left face/arm/leg symptoms with evidence of lower extremity neuropathy as well, likely diabetic in nature. 1. Persistent symptoms continue to point to a small stroke, possibly brain stem which is poorly visualized on MRI. I suspect his symptoms are waxing and waning to a certain degree. Continue secondary stroke risk factor reduction: --DAPT for 30 days then D/C Plavix on 09.12.19 --Statin: goal LDL < 70 --BP control --Blood glucose control is critical. He wears a pump, will need better control prison --Echo pending --Recommend Hypercoagulable workup. Discussed with primary 2. FDI atrophy and hand weakness on the left likely ulnar in nature vs. radiculopathy. Would plan for O/P EMG/NCS/MRI C-spine. No complaints of neck pain at this time but evidence of C7-8 radiculopathy on imaging. Pending echo. If negative, can d/c after hypercoaguable panel drawn. This will take several weeks to return so we will follow up in clinic for results. I plan to see him back in 6-8 weeks in clinic. We discussed the importance of smoking cessation, tight diabetes and blood pressure control. His significant other was at the bedside and updated as well.
--- NOTE | 2019-08-16 10:15 | PN ---
Hospitalist Progress Note Date of Service: 08/16/19 S: Pt states he did not sleep well and is feeling congested this morning. Complains of continued tingling in LUE, facial swelling and tingling in LE Blt. Pt admits to symptoms being slightly decreased. Pt denies fever/chills, ROJAS, N/V , SOB, chest pain, palpitations, abd pain. Acetaminophen (Tylenol Tab*) 650 mg PO Q4H PRN PRN Reason: MILD PAIN or TEMP > 100.4 Last Admin: 08/15/19 17:23 Dose: 650 mg Albuterol/Ipratropium (Duoneb (Albuterol 2.5 Mg/Ipratropium 0.5 Mg)) 1 neb INH [id number] AWAKE PRN PRN Reason: sob/wheezing Amlodipine Besylate (Norvasc Tab*) 10 mg PO DAILY [facility] Last Admin: 08/16/19 08:53 Dose: 10 mg Aspirin (Aspirin 81 Mg Chew Tab*) 81 mg PO DAILY [facility] Last Admin: 08/16/19 08:53 Dose: 81 mg Atorvastatin Calcium (Lipitor*) 40 mg PO BEDTIME [facility] Last Admin: 08/15/19 22:06 Dose: 40 mg Clopidogrel Bisulfate (Plavix Tab*) 75 mg PO DAILY [facility] Last Admin: 08/16/19 08:53 Dose: 75 mg Dextrose (Dextrose 50% Vial 50 Ml*) 25 ml IV PUSH .FOR FS < 60 - SS PRN PRN Reason: FS < 60 Docusate Sodium (Colace Cap*) 100 mg PO BID PRN PRN Reason: CONSTIPATION Guaifenesin/Codeine Phosphate (Robitussin Ac 100mg-10mg*) 5 ml PO Q6H PRN PRN Reason: COUGH Last Admin: 08/15/19 12:29 Dose: 5 ml Sodium Chloride (Ns 0.9% 1000 Ml) 1,000 mls @ 75 mls/hr IV PER RATE [facility] Last Admin: 08/16/19 01:18 EDT Dose: 75 mls/hr Insulin Human Lispro (Humalog*) 0 units SUBCUT ACHS [facility]; Protocol Last Admin: 08/16/19 08:51 Dose: 6 units Nicotine (Nicotine Patch 21 Mg/24 Hr*) 1 patch TRANSDERM DAILY [facility] Last Admin: 08/16/19 08:52 Dose: 1 patch Pharmacy Profile Note (Nicotine Patch Removal Note*) 1 note PATCH OFF 2100 [facility] Last Admin: 08/15/19 21:27 Dose: Not Given O: Temp Pulse Resp BP Pulse Ox 97.6 F 78 16 162/93 98 08/16/19 07:57 08/16/19 07:57 08/16/19 08:45 08/16/19 07:57 08/16/19 07:57 General: Sitting upright. NAD. A/Ox3. HEENT: Lips mildly swollen. Mild Lt facial droop c/ forehead sparing. SANJANA. EOMI. Neuro: Mild Lt arm drift. MS 4/5 LE blt. MS 5/5 RE blt. No dysarthria present. Cardio: RRR. No MRG. Pulm: Clear breath sounds. No rales, rhonchi, or wheezing. Abd: Soft, NT/ND. No rebound or guarding. Ext: Peripheral pulses 2+ blt UE and LE. A: 49 M Mhx of HTN, Hyperlipidemia and uncontrolled DM type II HgbA1c 12 presented c/ acute onset Lt facial droop, Lt arm weakness, and dysarthria. Strong suspicion of stroke despite negative imaging studies and is currently being tx for stroke c/ 30 days Plavix and ASA. P: #Lt sided weakness/dysarthria -a/w echo c/ bubble study -continue plavix and ASA for 30 days -continue atorvastatin 40mg PO HS -hypercoagulation study due to patient's age <50 despite having risk factors for stroke -f/u with neurology outpt #HTN -continue amlodopine 10mg PO daily -f/u c/ PCP. Will advise possible switch to Vishal-i due to hx of DM and proteinuria present on UA. #DM type II -Pt currently not in hyperglycemic crisis -basal rate requires adjustment outpt. -currently on corrective dose insulin -continue carb consistent diet -f/u c/ endocrine as outpt #tobacco use disorder -discharge c/ nicotine patches -spoke c/ pt and girlfriend about importance of smoke cessation and will be easier if both partners quit together. #congestion -start mucinex
[2019-08-16 12:10] VITALS: BP 150/75
[2019-08-16] MEDS: guaiFENesin/CODIENE 100mg/10mg 5 ML UDC PO PRN (12:14)
--- NOTE | 2019-08-16 12:57 | ECHO ---
*[facility]* [place] [address] Fax #: [phone] Transthoracic Echocardiogram Patient: Arthur Maynard : 1970 Study Date: 08/16/2019 Age: 49 Gender: M HR: 74 bpm Height: 68 in /172.7 cm BSA: 2.15 m^2 Weight: 225.5 lb /102.5 kg BMI: 34.4 kg/m^2 *Bicycle Courier: * Kary Gunderson RDCS RN *Referring Physician: * Estrellita Blakely *Reading Physician: * Randi Barrett MD Indications: CVA. History: Prior ETOH use. Risk factors: Current tobacco use. Hypertension. Diabetes mellitus. Obese. Dyslipidemia. Conclusions Summary: - Left ventricle: The cavity size is normal. Wall thickness is moderately increased. Systolic function is normal. The estimated ejection fraction is 60-65%. - Right ventricle: Systolic function is normal. - Atrial septum: Bubble study was negative on Images 104-106. - Mitral valve: There is mild regurgitation. - Tricuspid valve: There is trace regurgitation. - No prior echocardiogram to compare. Study data: Transthoracic echocardiogram. Procedure: Transthoracic echocardiography was performed. Image quality was fair. The study was technically limited due to body habitus and smoking history. Intravenous agitated saline was administered. A bubble study was performed on Images 104-106. Complete 2D, spectral Doppler, and color flow Doppler. Location: Bedside. Patient status: Observation. Patient room number: 450-02. Rhythm: Normal sinus rhythm. Findings Left ventricle: The cavity size is normal. Wall thickness is moderately increased. Systolic function is normal. The estimated ejection fraction is 60-65%. Wall motion is normal; there are no regional wall motion abnormalities. There is no consistent Doppler evidence of clinically significant diastolic dysfunction. Right ventricle: The cavity size is mildly dilated. Systolic function is normal. Left atrium: The atrium is normal in size. Right atrium: The atrium is normal in size. Atrial septum: No defect or patent foramen ovale is identified. Bubble study was negative on Images 104-106. Mitral valve: The leaflets are mildly thickened. There is no evidence of stenosis. There is mild regurgitation. Aortic valve: The valve is trileaflet. The leaflets are mildly thickened. There is no evidence of stenosis. There is no significant regurgitation. Tricuspid valve: The valve is structurally normal. There is no evidence of stenosis. There is trace regurgitation. Pulmonic valve: The valve is structurally normal. There is no evidence of stenosis. There is physiologic regurgitation. Aorta: Aortic root: The aortic root is not dilated. Ascending aorta: The ascending aorta is not dilated. Aortic arch: The aortic arch is not dilated. Pericardium: There is no pericardial effusion. Pulmonary arteries: The main pulmonary artery is normal-sized. Systolic pressure can not be accurately estimated. Systemic veins: Inferior vena cava: There is (< 50%) respiratory change in the IVC dimension. Measurements Left ventricle Value Ref Aortic valve Value Ref NAY, LAX 4.9 cm 4.2 - 5.8 Denita diam, ED 2.1 cm ---- ESD, LAX 3.3 cm 2.5 - 4.0 Peak v, S 1.5 m/sec ---- FS, LAX 33 % 25 - 43 VTI, S 32.2 cm ---- PW, ED (H) 1.3 cm 0.6 - 1.0 Mean grad, S 5.0 mm Hg ---- IVS/PW, ED 1.3 Peak grad, S 10.0 mm Hg ---- Qs 5.2 L/min LVOT/AV, VTI ratio 0.7 ---- E', lat denita, TDI (L) 8.4 cm/sec >=10.0 E/e', lat denita, 11 Mitral valve Value Ref TDI Peak E 0.88 m/sec ---- E', med denita, TDI (L) 5.5 cm/sec >=7.0 Peak A 0.7 m/sec -- -- E/e', med denita, 16 Decel time 204 ms ---- TDI Peak grad, D 3.1 mm Hg ---- E', avg, TDI 7.0 cm/sec Peak E/A ratio 1.3 ---- E/e', avg, TDI 13 <=14 Pulmonic valve Value Ref LVOT Value Ref Peak v, S 0.98 m/sec ---- Peak johnna, S 1.07 m/sec Peak grad, S 4.0 mm Hg ---- VTI, S 22.4 cm Mean grad, S 2 mm Hg Aortic root Value Ref Root diam 3.5 cm <4.3 Ventricular septum Value Ref IVS, ED (H) 1.7 cm 0.6 - 1.0 Ascending aorta Value Ref AAo AP diam, S 3.0 cm ---- Right ventricle Value Ref NAY, LAX 3.2 cm Aortic arch Value Ref NAY minor ax, A4C (H) 3.6 cm 1.9 - 3.5 Arch diam 2.9 cm ---- mid Decending aorta Value Ref Left atrium Value Ref Malathi peak johnna 0.84 m/sec ---- AP dim, ES (H) 4.10 cm 3.00 - 4.00 Inferior vena cava Value Ref ML dim, A4C 3.8 cm Diam 2.0 cm ---- SI dim, A4C 4.6 cm Vol/bsa, ES, 1-p 18 ml/m^2 12 - 37 A4C Vol/bsa, ES, A/L 19 ml/m^2 16 - 34 Right atrium Value Ref ML dim, ES, A4C 3.2 cm 2.6 - 4.4 SI dim, ES, A4C 4.0 cm 3.4 - 5.3 Estimated RAP 8 mm Hg Legend: (L) and (H) vicky values outside specified reference range. Prepared and electronically signed by Randi Barrett MD 08/16/2019 12:57
--- NOTE | 2019-08-16 21:43 | DS ---
CC: Dr. Derek Shi; Dr. Jose Daniel Hernandez * DISCHARGE SUMMARY: DATE OF ADMISSION: 08/13/19 DATE OF DISCHARGE: 08/16/19 PRINCIPAL DISCHARGE DIAGNOSES: 1. Occult cerebrovascular accident. 2. Uncontrolled diabetes. SECONDARY DISCHARGE DIAGNOSES: 1. Tobacco use disorder. 2. Type 2 diabetes. 3. Chronic kidney disease. 4. Hypertension. 5. Hyperlipidemia. MEDICATIONS AT DISCHARGE: 1. Insulin pump with Admelog at a rate of 1.3 units per hour. 2. Aspirin 81 mg daily. 3. Atorvastatin 40 mg at bedtime. 4. Plavix 75 mg daily. 5. Nicotine patch 21 mg transdermally daily. PHYSICAL EXAMINATION: At discharge, temperature 98.3, heart rate 90, respiratory rate 20, pulse ox 97% on room air, blood pressure of 150/75. General: Alert, well- appearing man, in no distress. HEENT: Pupils equal, round and reactive to light. There is no nystagmus. He has a left facial droop that spares the forehead. Neck: No JVP, no adenopathy. Chest: He is in a regular rate and rhythm, with no murmurs. Lungs: His lungs are clear bilaterally. Abdomen: Soft, obese, nontender, nondistended. Extremities: His left upper extremity strength is 4/5, his right upper extremity is 5/5. Lower extremities are equal in strength bilaterally at 5/5. PERTINENT FINDINGS ON THIS ADMISSION: He had 2 brain MRIs, one on 08/13/19 and one on 08/14/19, which showed no intracranial bleeds, suspicious mass, or mass effect. Ventricles appear unremarkable and no abnormality restricted diffusion to suggest acute ischemic event. The other MRI showed no acute intracranial abnormality. A transthoracic echocardiogram showed a normal LV, normal RV, negative bubble study, mild mitral regurgitation, and trace tricuspid regurgitation. HOSPITAL COURSE BY PROBLEM: 1. Ischemic CVA. Mr. Maynard was evaluated by neurology in the emergency department and they had a strong suspicion for an ischemic CVA; however, even at presentation, he was outside the window for tPA. They recommended admission for further workup. An MRI was negative for ischemia. On the next day following admission, he complained of worsening numbness and tingling in his lip and upper extremity, so the MRI was repeated as there was some concern that the first MRI could have missed the stroke; however, the second MRI was also negative. Still, his symptoms of numbness and tingling in his left upper lip and decreased strength in his left upper extremity persisted. A brain CT was obtained on 08/15/19 again for ongoing and worsening symptoms which was also unremarkable. Neurology continued to follow along and despite his negative imaging felt that this was still likely an occult CVA that was not captured on imaging and we have treated it as such. He has been continued on aspirin and Plavix and statin, and will continue aspirin and Plavix for 30 days, after which he will continue aspirin monotherapy. He has no rehabilitation needs. Because of his young age, we have also sent a hypercoagulable panel which is pending at the time of discharge. He agrees to follow up with Dr. Hernandez on an outpatient basis. He is being discharged on Saturday, so he needs to call and set this up tomorrow. He and his girlfriend agreed to do this. 2. Uncontrolled diabetes. We added some supplemental insulin because his insulin pump was not giving him adequate control and his hemoglobin A1c is 12. At the time of discharge, we are not sending him on any additional insulin because he has followup with his program eligibility specialist this week. I suspect his insulin pump needs to be at an increased rate. 3. Hypertension. We discussed the possibility of switching his amlodipine to an SANG inhibitor given his chronic kidney disease likely related to his diabetes. However, we did not want to adjust his antihypertensive in the setting of an acute CVA. We recommend discussing this with his primary care provider and his program eligibility specialist. 4. Chronic kidney disease. His renal function was at baseline through this hospitalization. His discharge creatinine is 1.7. 5. Tobacco use. Mr. Maynard agrees to discontinue cigarettes and the importance of this was emphasized. We have sent nicotine patches to his pharmacy. DISPOSITION: Mr. Maynard is being discharged to home on 08/16/19 with his girlfriend. He will follow up with his primary care provider, his program eligibility specialist, and his neurologist this week. CONDITION AT THE TIME OF DISCHARGE: Stable. [id number]/[facility] #: [id number] [facility] HOSPITALGurvinder
[2019-08-18 16:38] LABS: LAC APTT 32 sec (26 - 36)
[2019-08-18 20:40] LABS: Phospholipid Ab IgG < 9.4 GPL; Phospholipid Ab IgM, S < 9.4 MPL
[2019-08-24 11:33] LABS: Factor V Leiden Mutation Negative
[2019-08-25 15:45] LABS: Anti-Thrombin III Complex 2.7 ng/mL (<4.3)
== END 2019-08-16 15:43 | disposition home or self-care (01) ==
LOC: ED 15:25 → MEDTELE 18:48
PROVIDERS: ADMIT Internal Medicine; ATTEND Internal Medicine
DX: I63.9 Cerebral infarction, unspecified (principal); F17.210 Nicotine dependence, cigarettes, uncomplicated; I12.9 Hypertensive chronic kidney disease with stage 1 through stage 4 chronic kidney disease, or unspecified chronic kidney disease; E11.22 Type 2 diabetes mellitus with diabetic chronic kidney disease; N18.9 Chronic kidney disease, unspecified; E78.00 Pure hypercholesterolemia, unspecified; I10 Essential (primary) hypertension; R47.1 Dysarthria and anarthria; R53.1 Weakness; E78.5 Hyperlipidemia, unspecified; Z79.82 Long term (current) use of aspirin; Z79.4 Long term (current) use of insulin
CPT/HCPCS: 36415; 70450; 70496; 70498; 70551; 80048; 80053; 80061; 81003; 81015; 81241; 82607; 83036; 83520; 84443; 84484; 85025; 85303; 85306; 85610; 85613; 85730; 86147; 86780; 87641; 93005; 93306; 96360; 96361; 99283; A9270-GY; G0378; Q9967